=== PATIENT | male | born 1975 | race African-American/Black ===

== ENCOUNTER 2016-10-16 13:38 | Inpatient (IN) | payer BC ==
[2016-10-16 14:40] VITALS: BMI 21.3
--- NOTE | 2016-10-16 15:54 | HP ---
COWS - Scale Goose Flesh Skin: 3=Piloerection CIWA Score - CIWA Score Nausea/Vomitin-No Nausea/No Vomiting Muscle Tremors: 4-Moderate,w/Arms Extend Anxiety: 3 Agitation: 4-Moderately Restless Paroxysmal Sweats: 3 Orientation: 0-Oriented Tacttile Disturbances: 0-None Auditory Disturbances: 0-None Visual Disturbances: 0-None Headache: 0-None Present CIWA-Ar Total Score: 14 Admission ROS BHS - HPI Chief Complaint: I am here to detox. Allergies/Adverse Reactions: Allergies Allergy/AdvReac Type Severity Reaction Status Date / Time No Known Allergies Allergy Verified 10/16/16 15:31 History of Present Illness: pt is a 41yr old male with a history of alcohol and cocaine dependence seeking detox for treatment. Exam Limitations: No Limitations - Ebola screening Have you traveled outside of the country in the last 21 days: No Have you had contact with anyone from an Ebola affected area: No Have you been sick,other than usual withdrawal symptoms: No Do you have a fever: No - Review of Systems Constitutional: No Symptoms Reported EENT: reports: No Symptoms Reported Respiratory: reports: No Symptoms reported Cardiac: reports: Syncope GI: reports: No Symptoms Reported, Poor Fluid Intake : reports: No Symptoms Reported Musculoskeletal: reports: Back Pain Integumentary: reports: Flushing, Sweating Neuro: reports: Tingling, Tremors Endocrine: reports: Excessive Sweating, Flushing, Intolerance to Cold, Intolerance to Heat Hematology: reports: No Symptoms Reported Psychiatric: reports: Judgement Intact, Mood/Affect Appropiate, Orientated x3, Agitated, Anxious Other Systems: Reviewed and Negative Patient History - Patient Medical History Hx Anemia: No Hx Asthma: No Hx Chronic Obstructive Pulmonary Disease (COPD): No Hx Cancer: No Hx Cardiac Disorders: No Hx Congestive Heart Failure: No Hx Hypertension: No Hx Hypercholesterolemia: No Hx Pacemaker: No HX Cerebrovascular Accident: No Hx Seizures: No Hx Dementia: No Hx Diabetes: No Hx Gastrointestinal Disorders: No Hx Liver Disease: No Hx Genitourinary Disorders: No Hx Sexually Transmitted Disorders: No Hx Renal Disease (ESRD): No Hx Thyroid Disease: No Hx Human Immunodeficiency Virus (HIV): No (negative) Hx Hepatitis C: No (negative) Hx Depression: No Hx Suicide Attempt: No (denies) Hx Bipolar Disorder: No Hx Schizophrenia: No Other Medical History: panic attacks - Patient Surgical History Past Surgical History: No Hx Neurologic Surgery: No Hx Cataract Extraction: No Hx Cardiac Surgery: No Hx Lung Surgery: No Hx Breast Surgery: No Hx Breast Biopsy: No Hx Abdominal Surgery: No Hx Appendectomy: No Hx Cholecystectomy: No Hx Genitourinary Surgery: No Hx Section: No Hx Orthopedic Surgery: No Anesthesia Reaction: No - PPD History Previous Implant?: Yes Documented Results: Negative w/o proof Implanted On Prior [facility] Admission?: No PPD to be Administered?: Yes - Reproductive History Patient is a Female of Child Bearing Age (11 -55 yrs old): No - Smoking Cessation Smoking history: Current every day smoker Have you smoked in the past 12 months: Yes Aproximately how many cigarettes per day: 20 Hx Chewing Tobacco Use: No Initiated information on smoking cessation: Yes 'Breaking Loose' booklet given: 10/16/16 - Substance & Tx. History Hx Alcohol Use: Yes Hx Substance Use: Yes Substance Use Type: Alcohol, Cocaine Hx Substance Use Treatment: Yes (last detox [facility] 20yrs ago) - Substances Abused Crack Route: Smoking Frequency: Daily Amount used: $80 Age of first use: 17 Date of Last Use: 10/15/16 Alcohol-vodka/whisky/beer Route: Oral Frequency: Daily Amount used: 2 pts./2-6 pks. Age of first use: 12 Date of Last Use: 10/16/16 Family Disease History - Family Disease History Family Disease History: Diabetes: Father Admission Physical Exam BHS - Vital Signs Vital Signs: Vital Signs - 24 hr 10/16/16 14:39 Temperature 96.9 F L Pulse Rate 51 L Respiratory 20 Rate Blood Pressure 106/68 - Physical General Appearance: Yes: Appropriately Dressed, Moderate Distress, Thin, Irritable, Sweating, Anxious HEENTM: Yes: Hearing grossly Normal Respiratory: Yes: Lungs Clear, Normal Breath Sounds Neck: Yes: No masses,lesions,Nodules Breast: Yes: Within Normal Limits Cardiology: Yes: Regular Rhythm, Regular Rate, S1, S2 Abdominal: Yes: Normal Bowel Sounds, Non Tender, Soft Genitourinary: Yes: Within Normal Limits Back: Yes: Normal Inspection Musculoskeletal: Yes: full range of Motion, Back pain Extremities: Yes: Normal Capillary Refill, Normal Inspection, Tremors Neurological: Yes: Fully Oriented, Alert, Normal Response Integumentary: Yes: Normal Color, Diaphoresis Lymphatic: Yes: Within Normal Limits - Diagnostic (1) Alcohol dependence with uncomplicated withdrawal Current Visit: Yes Status: Chronic (2) Cocaine dependence, uncomplicated Current Visit: Yes Status: Chronic (3) Nicotine dependence Current Visit: Yes Status: Chronic Qualifiers: Nicotine product type: cigarettes (4) Panic attack Current Visit: Yes Status: Chronic Cleared for Admission [facility] - Detox or Rehab [facility] Level of Care: Medically Managed Detox Regimen/Protocol: Librium [facility] Breath Alcohol Content Breath Alcohol Content: 0 Urine Drug Screen - Results Drug Screen Negative: No Urine Drug Screen Results: MICHAEL-Cocaine
[2016-10-16] MEDS ORDERED: MAGNESIUM HYDROX 2400MG/30ML ORAL SUSPENSION 30 ML CUP PO PRN (15:56)
[2016-10-16] MEDS ORDERED: LOPERAMIDE HCL 2 MG CAPSULE PO PRN (15:56)
[2016-10-16] MEDS ORDERED: MAG HYDROX/AL HYDROX/SIMETH 30 ML UNIT-DOSE CUP PO PRN (15:56)
[2016-10-16] MEDS ORDERED: MAGNESIUM CITRATE 300 ML BOTTLE PO PRN (15:56)
[2016-10-16] MEDS ORDERED: chlordiazePOXIDE HCL 25 MG CAPSULE PO PRN (15:56)
[2016-10-16] MEDS ORDERED: hydrOXYzine PAMOATE 50 MG CAPSULE (FP) PO PRN (15:56)
[2016-10-16] MEDS ORDERED: P-EPHED 60MG/TRIPROLIDI 2.5MG TABLET PO PRN (15:56)
[2016-10-16] MEDS ORDERED: guaiFENesin/D-METHORPHAN HB 10 ML UNIT-DOSE CUPS PO PRN (15:56)
[2016-10-16] MEDS ORDERED: MENTHOL/PHENOL 1 EACH UD MM PRN (15:56)
[2016-10-16] MEDS ORDERED: chlordiazePOXIDE HCL 25 MG CAPSULE PO ONE (17:00)
[2016-10-16] MEDS: chlordiazePOXIDE HCL 25 MG CAPSULE PO SCH ×2 (17:59→22:42)
[2016-10-16] MEDS: NICOTINE POLACRILEX 4 MG GUM BUC PRN ×2 (18:05→22:43)
[2016-10-16 21:46] LABS: URINE APPEARANCE CLEAR; URINE BILIRUBIN NEGATIVE (NEGATIVE); URINE BLOOD NEGATIVE (NEGATIVE); URINE COLOR YELLOW; URINE GLUCOSE (UA) NEGATIVE (NEGATIVE); URINE KETONE NEGATIVE (NEGATIVE); URINE LEUK ESTERASE NEGATIVE (NEGATIVE); URINE NITRITE NEGATIVE (NEGATIVE); URINE PROTEIN NEGATIVE (NEGATIVE); URINE UROBILINOGEN NEGATIVE mg/dL (0.2-1.0)
[2016-10-16] MEDS: THIAMINE HCL 100 MG TABLET (FP) PO SCH (22:42)
[2016-10-16] MEDS: diphenhydrAMINE HCL 50 MG CAPSULE PO PRN (22:42)
[2016-10-17] MEDS: chlordiazePOXIDE HCL 25 MG CAPSULE PO SCH ×4 (05:56→22:55)
[2016-10-17] MEDS: NICOTINE POLACRILEX 4 MG GUM BUC PRN ×2 (05:58→10:42)
--- NOTE | 2016-10-17 08:46 | CONSULT ---
[facility] Psychiatric Consult - Data Date of interview: 10/17/16 Admission source: [facility] Identifying data: This is 41 years old male with no psychiatric hospitalization history iontoxicated with: Alcohol, Cocaine and Nicotine Substance Abuse History: - Smoking Cessation. Smoking history: Current every day smoker. Have you smoked in the past 12 months: Yes. Aproximately how many cigarettes per day: 20. Hx Chewing Tobacco Use: No. Initiated information on smoking cessation: Yes. 'Breaking Loose' booklet given: 10/16/16. - Substance & Tx. History. Hx Alcohol Use: Yes. Hx Substance Use: Yes. Substance Use Type : Alcohol, Cocaine. Hx Substance Use Treatment: Yes (last detox [facility] 20yrs ago). - Substances Abused. Crack. Route: Smoking. Frequency: Daily. Amount used: $80. Age of first use: 17. Date of Last Use: 10/15/16. * * Alcohol-vodka/whisky/beer. Route: Oral. Frequency: Daily. Amount used: 2 pts./2-6 pks. Age of first use: 12. Date of Last Use: 10/16/16 Medical History: Denies significant medical issues Psychiatric History: Denies Physical/Sexual Abuse/Trauma History: Denies Additional Comment: bservation. Detox Unit Carte Protocol Mental Status Exam - Mental Status Exam Alert and Oriented to: Person Cognitive Function: Fair Patient Appearance: Unkempt Mood: Sad Affect: Flat Patient Behavior: Sedated Speech Pattern: Delayed Voice Loudness: Mildly Soft/Quiet Thought Process: Goal Oriented Thought Disorder: Being Controlled Hallucinations: Denies Suicidal Ideation: Denies Homicidal Ideation: Denies Insight/Judgement: Fair Sleep: Difficulty falling asleep Appetite: Fair Muscle strength/Tone: Mild Hypotonicity Gait/Station: Shuffling Additional Comments: Observation. Detox Unit Care Protocol Psychiatric Findings - Problem List ([place] 1, 2,3) (1) Alcohol dependence with uncomplicated withdrawal Current Visit: Yes Status: Chronic (2) Cocaine dependence, uncomplicated Current Visit: Yes Status: Chronic (3) Nicotine dependence Current Visit: Yes Status: Chronic Qualifiers: Nicotine product type: cigarettes (4) Drug-induced mood disorder Current Visit: Yes Status: Suspected - Initial Treatment Plan Initial Treatment Plan: Observation. Detox Unit Care Protocol
[2016-10-17 09:53] LABS: MCHC 31.7 g/dl (32.0-35.9); MEAN CELL VOLUME 88.1 fl (80-96); MEAN PLT VOLUME 9.8 fl (7.5-11.1); PLATELET COUNT 171 K/MM3 (134-434); RDW 12.9 % (11.9-15.9); WHITE BLOOD COUNT 3.6 K/mm3 (4.0-10.0)
[2016-10-17 10:36] LABS: ALBUMIN 3.5 g/dl (3.4-5.0); ALK PHOS 53 U/L (45-117); ANION GAP 6 (8-16); BILIRUBIN,TOTAL 0.6 mg/dL (0.2-1.0); CALCIUM 8.9 mg/dL (8.5-10.1); CO2 32 mmol/L (21-32); GLUCOSE,RANDOM 79 mg/dL (74-106); SGOT/AST 15 U/L (15-37); SGPT/ALT 27 U/L (12-78); TOT PROT 6.7 g/dl (6.4-8.2)
[2016-10-17] MEDS: NICOTINE 21 MG/24 HOURS TOPICAL PATCH TD SCH (10:40)
[2016-10-17] MEDS: PRENATAL VITAMINS W/ FOLIC ACID TABLET (FP) PO SCH (10:40)
--- NOTE | 2016-10-17 12:28 | EKG ---
Test Reason : Blood Pressure : / mmHG Vent. Rate : 052 BPM Atrial Rate : 052 BPM P-R Int : 184 ms QRS Dur : 112 ms QT Int : 442 ms P-R-T Axes : 077 070 055 degrees QTc Int : 411 ms SINUS BRADYCARDIA MODERATE VOLTAGE CRITERIA FOR LVH, MAY BE NORMAL VARIANT BORDERLINE ECG NO PREVIOUS ECGS AVAILABLE Confirmed by LONNY LOVE MD ([id number]) on 10/17/2016 12:28:26 PM Referred By: Confirmed By:LONNY LOVE MD
--- NOTE | 2016-10-17 13:38 | PN ---
[facility] CIWA - CIWA Score Nausea/Vomitin-No Nausea/No Vomiting Muscle Tremors: 4-Moderate,w/Arms Extend Anxiety: 4-Mod. Anxious/Guarded Agitation: 2 Paroxysmal Sweats: 3 Orientation: 0-Oriented Tacttile Disturbances: 0-None Auditory Disturbances: 1-Very Mild Visual Disturbances: 3-Moderate Sensitivity Headache: 0-None Present CIWA-Ar Total Score: 17 BHS Progress Note (SOAP) Subjective: Tremors, Fatigue, Sweating. Objective: PT. A & O X 3, OBSERVED AMBULATING ON UNIT. NO ACUTE DISTRESS. 10/17/16 13:37 Vital Signs Temperature 99.7 F H 10/17/16 13:35 Pulse Rate 60 10/17/16 13:35 Respiratory Rate 18 10/17/16 13:35 Blood Pressure 121/67 10/17/16 13:35 O2 Sat by Pulse Oximetry (%) Laboratory Tests 10/16/16 10/17/16 10/17/16 20:30 07:00 07:00 WBC 3.6 L RBC 4.49 Hgb 12.5 Hct 39.5 MCV 88.1 MCH 28.0 MCHC 31.7 L RDW 12.9 Plt Count 171 MPV 9.8 Sodium 143 Potassium 4.0 Chloride 105 Carbon Dioxide 32 Anion Gap 6 L BUN 13 Creatinine 1.0 Creat Clearance w eGFR > 60 Random Glucose 79 Calcium 8.9 Total Bilirubin 0.6 AST 15 ALT 27 Alkaline Phosphatase 53 Total Protein 6.7 Albumin 3.5 Urine Color Yellow Urine Appearance Clear Urine pH 5.0 Ur Specific [place] 1.025 Urine Protein Negative Urine Glucose (UA) Negative Urine Ketones Negative Urine Blood Negative Urine Nitrite Negative Urine Bilirubin Negative Urine Urobilinogen Negative Ur Leukocyte Esterase Negative RPR Titer 10/17/16 07:00 WBC RBC Hgb Hct MCV MCH MCHC RDW Plt Count MPV Sodium Potassium Chloride Carbon Dioxide Anion Gap BUN Creatinine Creat Clearance w eGFR Random Glucose Calcium Total Bilirubin AST ALT Alkaline Phosphatase Total Protein Albumin Urine Color Urine Appearance Urine pH Ur Specific [place] Urine Protein Urine Glucose (UA) Urine Ketones Urine Blood Urine Nitrite Urine Bilirubin Urine Urobilinogen Ur Leukocyte Esterase RPR Titer Nonreactive LABS NOTED. Assessment: 10/17/16 13:37 WITHDRAWAL SYMPTOMS. Plan: CONTINUE DETOX.
[2016-10-17] MEDS: IBUPROFEN 400 MG TABLET (FP) PO PRN ×2 (17:53→22:58)
[2016-10-17] MEDS: THIAMINE HCL 100 MG TABLET (FP) PO SCH (22:56)
[2016-10-17] MEDS: diphenhydrAMINE HCL 50 MG CAPSULE PO PRN (22:56)
[2016-10-18] MEDS: chlordiazePOXIDE HCL 25 MG CAPSULE PO SCH ×2 (05:27→10:50)
[2016-10-18] MEDS: NICOTINE 21 MG/24 HOURS TOPICAL PATCH TD SCH (10:49)
[2016-10-18] MEDS: PRENATAL VITAMINS W/ FOLIC ACID TABLET (FP) PO SCH (10:50)
[2016-10-18] MEDS: IBUPROFEN 400 MG TABLET (FP) PO PRN ×3 (10:53→22:51)
[2016-10-18] MEDS: NICOTINE POLACRILEX 4 MG GUM BUC PRN (10:54)
--- NOTE | 2016-10-18 13:03 | PN ---
[facility] CIWA - CIWA Score Nausea/Vomitin-No Nausea/No Vomiting Muscle Tremors: 3 Anxiety: 3 Agitation: 3 Paroxysmal Sweats: 3 Orientation: 0-Oriented Tacttile Disturbances: 3-Moderate Itch/Numb/Burn Auditory Disturbances: 2-Mild Harshness/Frighten Visual Disturbances: 0-None Headache: 0-None Present CIWA-Ar Total Score: 17 BHS Progress Note (SOAP) Subjective: Interrupted sleep, Body Aches, Sweating. Objective: PT. A & O X 3, OBSERVED AMBULATING ON UNIT. NO ACUTE DISTRESS. 10/18/16 13:02 Vital Signs Temperature 97.7 F 10/18/16 11:15 Pulse Rate 49 L 10/18/16 11:15 Respiratory Rate 20 10/18/16 11:15 Blood Pressure 105/69 10/18/16 11:15 O2 Sat by Pulse Oximetry (%) Laboratory Tests 10/16/16 10/17/16 10/17/16 20:30 07:00 07:00 WBC 3.6 L RBC 4.49 Hgb 12.5 Hct 39.5 MCV 88.1 MCH 28.0 MCHC 31.7 L RDW 12.9 Plt Count 171 MPV 9.8 Sodium 143 Potassium 4.0 Chloride 105 Carbon Dioxide 32 Anion Gap 6 L BUN 13 Creatinine 1.0 Creat Clearance w eGFR > 60 Random Glucose 79 Calcium 8.9 Total Bilirubin 0.6 AST 15 ALT 27 Alkaline Phosphatase 53 Total Protein 6.7 Albumin 3.5 Urine Color Yellow Urine Appearance Clear Urine pH 5.0 Ur Specific [place] 1.025 Urine Protein Negative Urine Glucose (UA) Negative Urine Ketones Negative Urine Blood Negative Urine Nitrite Negative Urine Bilirubin Negative Urine Urobilinogen Negative Ur Leukocyte Esterase Negative RPR Titer 10/17/16 07:00 WBC RBC Hgb Hct MCV MCH MCHC RDW Plt Count MPV Sodium Potassium Chloride Carbon Dioxide Anion Gap BUN Creatinine Creat Clearance w eGFR Random Glucose Calcium Total Bilirubin AST ALT Alkaline Phosphatase Total Protein Albumin Urine Color Urine Appearance Urine pH Ur Specific [place] Urine Protein Urine Glucose (UA) Urine Ketones Urine Blood Urine Nitrite Urine Bilirubin Urine Urobilinogen Ur Leukocyte Esterase RPR Titer Nonreactive LABS NOTED. Assessment: 10/18/16 13:02 WITHDRAWAL SYMPTOMS. Plan: CONTINUE DETOX. INCREASE DAILY PO FLUID INTAKE.
[2016-10-18] MEDS: chlordiazePOXIDE 5 MG CAPSULE PO SCH ×2 (17:41→22:47)
[2016-10-18] MEDS: HYDROCORTISONE 1% TOPICAL OINT 30 GM TUBE TP SCH (18:30)
[2016-10-18] MEDS: THIAMINE HCL 100 MG TABLET (FP) PO SCH (22:47)
[2016-10-18] MEDS: diphenhydrAMINE HCL 50 MG CAPSULE PO PRN (22:49)
[2016-10-19] MEDS: chlordiazePOXIDE 5 MG CAPSULE PO SCH ×2 (06:01→10:51)
[2016-10-19] MEDS: IBUPROFEN 400 MG TABLET (FP) PO PRN (06:04)
[2016-10-19] MEDS: NICOTINE POLACRILEX 4 MG GUM BUC PRN (06:12)
[2016-10-19] MEDS: ACETAMINOPHEN 325 MG TABLET (FP) PO PRN (10:49)
[2016-10-19] MEDS: PRENATAL VITAMINS W/ FOLIC ACID TABLET (FP) PO SCH (10:50)
[2016-10-19] MEDS: HYDROCORTISONE 1% TOPICAL OINT 30 GM TUBE TP SCH (10:50)
[2016-10-19] MEDS: NICOTINE 21 MG/24 HOURS TOPICAL PATCH TD SCH (10:51)
[2016-10-19] MEDS: chlordiazePOXIDE HCL 10 MG CAPSULE PO SCH ×2 (17:36→22:40)
--- NOTE | 2016-10-19 20:47 | PN ---
BHS Progress Note (SOAP) Subjective: Body Aches. Objective: PT. A & O X 3, OBSERVED AMBULATING ON UNIT. NO ACUTE DISTRESS. 10/19/16 20:45 Vital Signs Temperature 97.9 F 10/19/16 19:13 Pulse Rate 50 L 10/19/16 19:13 Respiratory Rate 18 10/19/16 19:13 Blood Pressure 95/58 10/19/16 19:13 O2 Sat by Pulse Oximetry (%) Laboratory Tests 10/16/16 10/17/16 10/17/16 20:30 07:00 07:00 WBC 3.6 L RBC 4.49 Hgb 12.5 Hct 39.5 MCV 88.1 MCH 28.0 MCHC 31.7 L RDW 12.9 Plt Count 171 MPV 9.8 Sodium 143 Potassium 4.0 Chloride 105 Carbon Dioxide 32 Anion Gap 6 L BUN 13 Creatinine 1.0 Creat Clearance w eGFR > 60 Random Glucose 79 Calcium 8.9 Total Bilirubin 0.6 AST 15 ALT 27 Alkaline Phosphatase 53 Total Protein 6.7 Albumin 3.5 Urine Color Yellow Urine Appearance Clear Urine pH 5.0 Ur Specific [place] 1.025 Urine Protein Negative Urine Glucose (UA) Negative Urine Ketones Negative Urine Blood Negative Urine Nitrite Negative Urine Bilirubin Negative Urine Urobilinogen Negative Ur Leukocyte Esterase Negative RPR Titer 10/17/16 07:00 WBC RBC Hgb Hct MCV MCH MCHC RDW Plt Count MPV Sodium Potassium Chloride Carbon Dioxide Anion Gap BUN Creatinine Creat Clearance w eGFR Random Glucose Calcium Total Bilirubin AST ALT Alkaline Phosphatase Total Protein Albumin Urine Color Urine Appearance Urine pH Ur Specific [place] Urine Protein Urine Glucose (UA) Urine Ketones Urine Blood Urine Nitrite Urine Bilirubin Urine Urobilinogen Ur Leukocyte Esterase RPR Titer Nonreactive LABS NOTED. Assessment: 10/19/16 20:46 WITHDRAWAL SYMPTOMS. Plan: CONTINUE DETOX. INCREASE PO FLUID INTAKE.
[2016-10-19] MEDS: diphenhydrAMINE HCL 50 MG CAPSULE PO PRN (22:40)
[2016-10-19] MEDS: THIAMINE HCL 100 MG TABLET (FP) PO SCH (22:40)
[2016-10-20] MEDS: chlordiazePOXIDE HCL 10 MG CAPSULE PO SCH (05:24)
[2016-10-20] MEDS: PRENATAL VITAMINS W/ FOLIC ACID TABLET (FP) PO SCH (09:04)
[2016-10-20] MEDS: NICOTINE 21 MG/24 HOURS TOPICAL PATCH TD SCH (09:04)
[2016-10-20] MEDS: HYDROCORTISONE 1% TOPICAL OINT 30 GM TUBE TP SCH (09:05)
[2016-10-20] MEDS: NICOTINE POLACRILEX 4 MG GUM BUC PRN (09:05)
[2016-10-20 09:22] VITALS: BP 114/72; PULSE 57; TEMP 96.7
[2016-10-20] MEDS: ACETAMINOPHEN 325 MG TABLET (FP) PO PRN (09:59)
--- NOTE | 2016-10-20 13:32 | DS ---
[facility] Detox Discharge Summary Admission Date: 10/16/16 Discharge Date: 10/20/16 - History Present History: Alcohol Dependence, Cocaine Dependence - Physical Exam Results Vital Signs: Vital Signs Temperature 96.7 F L 10/20/16 09:21 Pulse Rate 57 L 10/20/16 09:21 Respiratory Rate 18 10/20/16 09:21 Blood Pressure 114/72 10/20/16 09:21 O2 Sat by Pulse Oximetry (%) Pertinent Admission Physical Exam Findings: Withdrawal symptoms Laboratory Tests 10/16/16 10/17/16 10/17/16 20:30 07:00 07:00 WBC 3.6 L RBC 4.49 Hgb 12.5 Hct 39.5 MCV 88.1 MCH 28.0 MCHC 31.7 L RDW 12.9 Plt Count 171 MPV 9.8 Sodium 143 Potassium 4.0 Chloride 105 Carbon Dioxide 32 Anion Gap 6 L BUN 13 Creatinine 1.0 Creat Clearance w eGFR > 60 Random Glucose 79 Calcium 8.9 Total Bilirubin 0.6 AST 15 ALT 27 Alkaline Phosphatase 53 Total Protein 6.7 Albumin 3.5 Urine Color Yellow Urine Appearance Clear Urine pH 5.0 Ur Specific [place] 1.025 Urine Protein Negative Urine Glucose (UA) Negative Urine Ketones Negative Urine Blood Negative Urine Nitrite Negative Urine Bilirubin Negative Urine Urobilinogen Negative Ur Leukocyte Esterase Negative RPR Titer 10/17/16 07:00 WBC RBC Hgb Hct MCV MCH MCHC RDW Plt Count MPV Sodium Potassium Chloride Carbon Dioxide Anion Gap BUN Creatinine Creat Clearance w eGFR Random Glucose Calcium Total Bilirubin AST ALT Alkaline Phosphatase Total Protein Albumin Urine Color Urine Appearance Urine pH Ur Specific [place] Urine Protein Urine Glucose (UA) Urine Ketones Urine Blood Urine Nitrite Urine Bilirubin Urine Urobilinogen Ur Leukocyte Esterase RPR Titer Nonreactive Labs noted - Treatment Hospital Course: Detox Protocol Followed, Detoxed Safely, Responded well, Discharged Condition Good - Medication Discharge Medications: Ambulatory Orders NK [No Known Home Medication] 10/16/16 - Diagnosis (1) Alcohol dependence with uncomplicated withdrawal Status: Acute (2) Cocaine dependence, uncomplicated Status: Chronic (3) Nicotine dependence Status: Chronic Qualifiers: Nicotine product type: cigarettes (4) Panic attack Status: Chronic - AMA Did Patient Leave Against Medical Advice: No
== END 2016-10-20 10:01 | disposition home or self-care (01) | DRG 774 ==
LOC: YASAS 13:38 → Y3N 16:47
PROVIDERS: ADMIT Internal Medicine Addiction Medicine; ATTEND Internal Medicine Addiction Medicine
PROC: HZ2ZZZZ Detoxification Services for Substance Abuse Treatment (ICD-10-PCS; principal; 2016-10-16)
DX: F10.230 Alcohol dependence with withdrawal, uncomplicated (principal); F14.20 Cocaine dependence, uncomplicated; F17.210 Nicotine dependence, cigarettes, uncomplicated; F41.0 Panic disorder [episodic paroxysmal anxiety]; F19.24 Other psychoactive substance dependence with psychoactive substance-induced mood disorder; Z59.0 Homelessness
CPT/HCPCS: 36415; 80053; 81003; 85027; 86593; 93005; 93010

== ENCOUNTER 2017-07-30 18:34 | Inpatient (IN) | payer BC ==
[2017-07-30 19:52] VITALS: BMI 23.3
[2017-07-30] MEDS ORDERED: MELATONIN 5 MG TABLETS PO PRN (22:00)
--- NOTE | 2017-07-30 23:28 | HP ---
CIWA Score - CIWA Score Nausea/Vomitin Muscle Tremors: 3 Anxiety: 3 Agitation: 4-Moderately Restless Paroxysmal Sweats: No Perspiration Orientation: 1-Uncertain about Date Tacttile Disturbances: 0-None Auditory Disturbances: 0-None Visual Disturbances: 0-None Headache: 2-Mild CIWA-Ar Total Score: 16 Admission ROS S - HPI Chief Complaint: Alcohol withdrawal symptoms Allergies/Adverse Reactions: Allergies Allergy/AdvReac Type Severity Reaction Status Date / Time No Known Allergies Allergy Verified 07/30/17 22:45 History of Present Illness: 42 years old male with a long history of alcohol dependence is seeking admission to detox. Patient has been to previous detox and reports in significant period of sobriety. He reports suicide attempt in 2017 and denies suicidal ideation at this time. Exam Limitations: No Limitations - Ebola screening Have you traveled outside of the country in the last 21 days: No Have you had contact with anyone from an Ebola affected area: No Have you been sick,other than usual withdrawal symptoms: No Do you have a fever: No - Review of Systems Constitutional: Chills, Loss of Appetite, Malaise, Changes in sleep EENT: reports: No Symptoms Reported Respiratory: reports: No Symptoms reported Cardiac: reports: No Symptoms Reported GI: reports: Poor Appetite, Poor Fluid Intake : reports: No Symptoms Reported Musculoskeletal: reports: Back Pain, Muscle Pain, Neck Pain Integumentary: reports: Dryness Neuro: reports: Headache, Tremors Endocrine: reports: No Symptoms Reported Hematology: reports: No Symptoms Reported Psychiatric: reports: Orientated x3, Anxious, Depressed Other Systems: Reviewed and Negative Patient History - Patient Medical History Hx Anemia: No Hx Asthma: No Hx Chronic Obstructive Pulmonary Disease (COPD): No Hx Cancer: No Hx Cardiac Disorders: No Hx Congestive Heart Failure: No Hx Hypertension: No Hx Hypercholesterolemia: No Hx Pacemaker: No HX Cerebrovascular Accident: No Hx Seizures: No Hx Dementia: No Hx Diabetes: No Hx Gastrointestinal Disorders: No Hx Liver Disease: No Hx Genitourinary Disorders: No Hx Sexually Transmitted Disorders: No Hx Renal Disease (ESRD): No Hx Thyroid Disease: No Hx Human Immunodeficiency Virus (HIV): No (N egative) Hx Hepatitis C: No (Negative) Hx Depression: Yes (Risperdal and depakote) Hx Suicide Attempt: No (Denies suicidal ideation at this time) Hx Bipolar Disorder: No Hx Schizophrenia: No - Patient Surgical History Past Surgical History: No Hx Neurologic Surgery: No Hx Cataract Extraction: No Hx Cardiac Surgery: No Hx Lung Surgery: No Hx Breast Surgery: No Hx Breast Biopsy: No Hx Abdominal Surgery: No Hx Appendectomy: No Hx Cholecystectomy: No Hx Genitourinary Surgery: No Hx Section: No Hx Orthopedic Surgery: No Other Surgical History: Anxiety - Depakote and Risperdal Anesthesia Reaction: No - PPD History Previous Implant?: Yes Documented Results: Negative w/proof Date: 10/18/16 PPD to be Administered?: Yes - Reproductive History Patient is a Female of Child Bearing Age (11 -55 yrs old): No (Male) - Smoking Cessation Smoking history: Current every day smoker Have you smoked in the past 12 months: Yes Aproximately how many cigarettes per day: 20 Hx Chewing Tobacco Use: No Initiated information on smoking cessation: Yes 'Breaking Loose' booklet given: 07/30/17 - Substance & Tx. History Hx Alcohol Use: Yes Hx Substance Use: Yes Substance Use Type: Cocaine, Heroin - Substances Abused Alcohol Route: Oral Frequency: Daily Amount used: LIQUOR- 3 PINTS, BEER- 1 SIX PACK Age of first use: 14 Date of Last Use: 07/29/17 Cocaine Route: Smoking Frequency: Daily Amount used: $100 WORTH Age of first use: 16 Date of Last Use: 07/29/17 Family Disease History - Family Disease History Family Disease History: Diabetes: Father Admission Physical Exam BHS - Vital Signs Vital Signs: Vital Signs - 24 hr 07/30/17 19:51 Temperature 97.7 F Pulse Rate 51 L Respiratory 16 Rate Blood Pressure 137/80 - Physical General Appearance: Yes: Moderate Distress, Tremorous, Irritable, Sweating, Anxious HEENTM: Yes: EOMI, Normal ENT Inspection, Normocephalic, Normal Voice, LETICIA Respiratory: Yes: Lungs Clear, Normal Breath Sounds, No Respiratory Distress Neck: Yes: Supple Breast: Yes: Breast Exam Deferred Cardiology: Yes: Within Normal Limits, Regular Rhythm, Regular Rate, S1, S2 Abdominal: Yes: Normal Bowel Sounds, Soft Genitourinary: Yes: Within Normal Limits Back: Yes: Normal Inspection Musculoskeletal: Yes: Back pain, Muscle Pain Extremities: Yes: Tremors Neurological: Yes: Alert, Normal Mood/Affect Integumentary: Yes: Normal Color, Warm Lymphatic: Yes: Within Normal Limits - Diagnostic (1) Anxiety Current Visit: Yes Status: Chronic (2) Depression Current Visit: Yes Status: Chronic (3) Nicotine dependence Current Visit: Yes Status: Chronic (4) Alcohol dependence with uncomplicated withdrawal Current Visit: Yes Status: Chronic (5) Cocaine dependence, uncomplicated Current Visit: Yes Status: Chronic (6) Sedative, hypnotic or anxiolytic abuse with sedative, hypnotic or anxiolytic -induced mood disorder Current Visit: Yes Status: Acute Cleared for Admission [facility] - Detox or Rehab [facility] Level of Care: Medically Managed Detox Regimen/Protocol: Librium [facility] Breath Alcohol Content Breath Alcohol Content: 0 Urine Drug Screen - Results Drug Screen Negative: No Urine Drug Screen Results: MICHAEL-Cocaine, BZO-Benzodiazepines
[2017-07-30] MEDS ORDERED: MAG HYDROX/AL HYDROX/SIMETH 30 ML UNIT-DOSE CUP PO PRN (23:33)
[2017-07-30] MEDS ORDERED: MAGNESIUM CITRATE 300 ML BOTTLE PO PRN (23:33)
[2017-07-30] MEDS ORDERED: chlordiazePOXIDE HCL 25 MG CAPSULE PO ONE (23:33)
[2017-07-30] MEDS ORDERED: MAGNESIUM HYDROX 2400MG/30ML ORAL SUSPENSION 30 ML CUP PO PRN (23:33)
[2017-07-30] MEDS ORDERED: guaiFENesin/D-METHORPHAN HB 10 ML UNIT-DOSE CUPS PO PRN (23:33)
[2017-07-30] MEDS ORDERED: MENTHOL/PHENOL 1 EACH UD MM PRN (23:33)
[2017-07-30] MEDS ORDERED: P-EPHED 60MG/TRIPROLIDI 2.5MG TABLET PO PRN (23:33)
[2017-07-30] MEDS ORDERED: LOPERAMIDE HCL 2 MG CAPSULE PO PRN (23:33)
[2017-07-30] MEDS ORDERED: NICOTINE POLACRILEX 2 MG GUM BC PRN (23:33)
[2017-07-30] MEDS ORDERED: ACETAMINOPHEN 325 MG TABLET (FP) PO PRN (23:33)
[2017-07-30] MEDS ORDERED: chlordiazePOXIDE HCL 25 MG CAPSULE PO PRN (23:33)
[2017-07-31] MEDS: chlordiazePOXIDE HCL 25 MG CAPSULE PO SCH ×8 (04:15→22:22)
[2017-07-31] MEDS ORDERED: chlordiazePOXIDE HCL 25 MG CAPSULE PO SCH (05:00)
[2017-07-31 07:48] LABS: URINE APPEARANCE TURBID; URINE BILIRUBIN NEGATIVE (<2.0 mg/dL); URINE COLOR YELLOW; URINE GLUCOSE (UA) NEGATIVE (NEGATIVE); URINE KETONE NEGATIVE (NEGATIVE); URINE LEUK ESTERASE NEGATIVE (NEGATIVE); URINE NITRITE NEGATIVE (NEGATIVE)
[2017-07-31 08:00] LABS: URINE PROTEIN 1+ (NEGATIVE)
[2017-07-31 08:25] LABS: URINE BACTERIA MANY /hpf (NONE SEEN)
--- NOTE | 2017-07-31 09:12 | CONSULT ---
[facility] Psychiatric Consult - Data Date of interview: 07/31/17 Admission source: [facility] Identifying data: This is 42 years old male, single, father tiara, homeless, on PA, with psychiatric hospitalization histry, history of Bipolar Disorder with a long history of alcohol dependence is seeking admission to detox. Patient has been to previous detox and reports in significant period of sobriety. He reports suicide attempt history in 2017 and denies suicidal ideation at this time. Substance Abuse History: Smoking history: Current every day smoker. Have you smoked in the past 12 months: Yes. Aproximately how many cigarettes per day: 20. Hx Chewing Tobacco Use: No. Initiated information on smoking cessation: Yes. 'Breaking Loose' booklet given: 07/30/17. - Substance & Tx. History. Hx Alcohol Use: Yes. Hx Substance Use: Yes. Substance Use Type: Cocaine, Heroin. - Substances Abused. Alcohol. Route: Oral. Frequency: Daily. Amount used: LIQUOR- 3 PINTS, BEER- 1 SIX PACK. Age of first use: 14. Date of Last Use: 07/29/17. Cocaine. Route: Smoking. Frequency: Daily. Amount used: $ 100 WORTH. Age of first use: 16. Date of Last Use: 07/29/17 Medical History: Denies significant medical issues Psychiatric History: Patient reports history of Bipolar disorder, with most rcent psychiatric admission on [address] [facility] [place] for safety, reports unclear history of suicidal ideqations, denies suicidal, homiCidal ideations at this time. Patient reports taking prior to admission: Risperdal 2mf poqd. Depakote 1500mg po qhs Physical/Sexual Abuse/Trauma History: Denies Additional Comment: Risperdal 2mf poqd. Depakote 1500mg po qhs Mental Status Exam - Mental Status Exam Alert and Oriented to: Person Cognitive Function: Fair Patient Appearance: Unkempt Mood: Sad Affect: Mood Congruent Patient Behavior: Guarded, Cooperative Speech Pattern: Appropriate Voice Loudness: Normal Thought Process: Goal Oriented Thought Disorder: Being Controlled Hallucinations: Denies Suicidal Ideation: Denies Homicidal Ideation: Denies Insight/Judgement: Fair Sleep: Difficulty falling asleep Appetite: Weight loss Muscle strength/Tone: Normal Gait/Station: Normal Additional Comments: Risperdal 2mf poqd. Depakote 1500mg po qhs Psychiatric Findings - Problem List ([place] 1, 2,3) (1) Sedative, hypnotic or anxiolytic abuse with sedative, hypnotic or anxiolytic -induced mood disorder Current Visit: Yes Status: Acute (2) Alcohol dependence with uncomplicated withdrawal Current Visit: Yes Status: Chronic (3) Anxiety Current Visit: Yes Status: Chronic (4) Cocaine dependence, uncomplicated Current Visit: Yes Status: Chronic (5) Depression Current Visit: Yes Status: Chronic (6) Nicotine dependence Current Visit: Yes Status: Chronic (7) Panic attack Current Visit: No Status: Chronic (8) Drug-induced mood disorder Current Visit: No Status: Suspected - Initial Treatment Plan Initial Treatment Plan: Risperdal 2mf poqd. Depakote 1500mg po qhs. Blood Depakote level
[2017-07-31 10:08] LABS: RDW 13.6 % (11.9-15.9); WHITE BLOOD COUNT 3.9 K/mm3 (4.0-10.0)
[2017-07-31 10:11] LABS: HEMATOCRIT 36.8 % (35.4-49); MCHC 32.5 g/dl (32.0-35.9); MEAN CELL VOLUME 86.3 fl (80-96); MEAN PLT VOLUME 9.9 fl (7.5-11.1); PLATELET COUNT 157 K/MM3 (134-434); RBC 4.26 M/mm3 (4.00-5.60)
[2017-07-31] MEDS: PRENATAL VITAMINS W/ FOLIC ACID TABLET (FP) PO SCH (10:37)
[2017-07-31] MEDS: risperiDONE 2 MG TABLET PO SCH (10:38)
[2017-07-31] MEDS: DIVALPROEX SODIUM 500 MG TABLET E.C. PO SCH (10:38)
[2017-07-31] MEDS: NICOTINE 14 MG/24 HOURS TOPICAL PATCH TD SCH (10:39)
[2017-07-31 10:46] LABS: CHLORIDE 104 mmol/L (98-107); POTASSIUM 3.8 mmol/L (3.5-5.1); SODIUM 142 mmol/L (136-145)
--- NOTE | 2017-07-31 10:56 | PN ---
S CIWA - CIWA Score Nausea/Vomitin-Mild Nausea/No Vomiting Muscle Tremors: 1-None Visible, but [place] Anxiety: 1-Mildly Anxious Agitation: 0-Normal Activity Paroxysmal Sweats: 1-Minimal Palms Moist Orientation: 0-Oriented Tacttile Disturbances: 0-None Auditory Disturbances: 0-None Visual Disturbances: 0-None Headache: 1-Very Mild CIWA-Ar Total Score: 5 B[facility] Progress Note (SOAP) Subjective: Patient admitted for ETOH withdrawal symptoms on 07/2017. Patient states " I am hanging in there. I feel OK." Denies CP, SOB and Dizziness. Mild indigestion and nausea reported. + anxiety. Objective: 07/31/17 10:54 Obj: General: alert and oriented x 3. In NAD. Mildy anxious. Skin: warm and moist. Car: S1S2 Resp: CTA BL Assessment: 07/31/17 10:55 ETOH withdrawal sydrome Plan: Continue detox Patient medically stable continue oral fluids and monitor clinically
[2017-07-31 11:17] LABS: ALBUMIN 3.8 g/dl (3.4-5.0); ALK PHOS 54 U/L (45-117); ANION GAP 10 (8-16); BILIRUBIN,TOTAL 0.5 mg/dL (0.2-1.0); BLOOD UREA NITROGEN 15 mg/dL (7-18); CALCIUM 8.5 mg/dL (8.5-10.1); CO2 28 mmol/L (21-32); CREATININE 1.2 mg/dL (0.7-1.3); GLUCOSE,RANDOM 84 mg/dL (74-106); SGOT/AST 17 U/L (15-37); SGPT/ALT 23 U/L (12-78); TOT PROT 7.2 g/dl (6.4-8.2)
--- NOTE | 2017-07-31 11:58 | EKG ---
Test Reason : Blood Pressure : / mmHG Vent. Rate : 071 BPM Atrial Rate : 071 BPM P-R Int : 200 ms QRS Dur : 098 ms QT Int : 372 ms P-R-T Axes : 073 066 052 degrees QTc Int : 404 ms NORMAL SINUS RHYTHM NONSPECIFIC ST ABNORMALITY ABNORMAL ECG WHEN COMPARED WITH ECG OF 31-JUL-2017 00:43, VENT. RATE HAS INCREASED BY 26 BPM Confirmed by IVAN GUADALUPE, LONNY ([id number]) on 07/31/2017 11:58:26 AM Referred By: Confirmed By:LONNY LOVE MD
--- NOTE | 2017-07-31 11:59 | EKG ---
Test Reason : Blood Pressure : / mmHG Vent. Rate : 045 BPM Atrial Rate : 045 BPM P-R Int : 210 ms QRS Dur : 116 ms QT Int : 476 ms P-R-T Axes : 076 063 047 degrees QTc Int : 411 ms SINUS BRADYCARDIA WITH 1ST DEGREE A-V BLOCK ST ELEVATION, CONSIDER EARLY REPOLARIZATION BORDERLINE ECG WHEN COMPARED WITH ECG OF 16-OCT-2016 17:51, NO SIGNIFICANT CHANGE WAS FOUND Confirmed by IVAN GUADALUPE, LONNY (2013) on 07/31/2017 11:58:58 AM Referred By: Confirmed By:LONNY LOVE MD
[2017-07-31] MEDS: AMOXICILLIN 500 MG CAPSULE (FP) PO SCH ×2 (14:23→22:22)
--- NOTE | 2017-07-31 14:36 | PN ---
S Progress Note Note: NOTIFIED BY RN PATIENT C/O SORE THROAT AND UNABLE TO FULLY OPEN MOUTH. CEPASTAT INEFFECTIVE. TEMPERATURE 100.6. WILL ORDER THROAT C/S AND AMOXICILLIN 500MG TID X 7 DAYS. CONTINUE TO MONITOR CLINICALLY.
[2017-07-31] MEDS: IBUPROFEN 400 MG TABLET (FP) PO PRN (17:15)
[2017-07-31] MEDS: THIAMINE HCL 100 MG TABLET (FP) PO SCH (22:22)
[2017-08-01] MEDS ORDERED: chlordiazePOXIDE 5 MG CAPSULE PO SCH (05:00)
[2017-08-01] MEDS: AMOXICILLIN 500 MG CAPSULE (FP) PO SCH ×3 (05:46→22:45)
[2017-08-01] MEDS: chlordiazePOXIDE HCL 25 MG CAPSULE PO SCH ×4 (05:46→22:45)
[2017-08-01] MEDS: risperiDONE 2 MG TABLET PO SCH (10:21)
[2017-08-01] MEDS: PRENATAL VITAMINS W/ FOLIC ACID TABLET (FP) PO SCH (10:21)
[2017-08-01] MEDS: NICOTINE 14 MG/24 HOURS TOPICAL PATCH TD SCH (10:21)
[2017-08-01] MEDS: DIVALPROEX SODIUM 500 MG TABLET E.C. PO SCH (10:21)
--- NOTE | 2017-08-01 11:05 | PN ---
[facility] CIWA - CIWA Score Muscle Tremors: None Anxiety: 0-No Anxiety, at Ease Agitation: 0-Normal Activity Paroxysmal Sweats: No Perspiration Orientation: 0-Oriented Tacttile Disturbances: 0-None Auditory Disturbances: 0-None
--- NOTE | 2017-08-01 11:12 | PN ---
[facility] Progress Note (SOAP) Subjective: 42 years old male with a long history of alcohol dependence is here for detox Today pt states he feels tired and depressed, Says librium is working well for him Objective: 08/01/17 11:07 Vital Signs - 24 hr 07/31/17 07/31/17 07/31/17 13:08 18:04 22:39 Temperature 100.6 F H 101.8 F H 97.5 F L Pulse Rate 70 86 68 Respiratory 18 18 19 Rate Blood Pressure 123/67 114/63 101/64 08/01/17 08/01/17 08/01/17 00:30 03:30 06:00 Temperature 97.3 F L Pulse Rate 56 L Respiratory 18 18 18 Rate Blood Pressure 106/63 08/01/17 10:00 Temperature 98.0 F Pulse Rate 74 Respiratory 18 Rate Blood Pressure 106/68 07/31/17 07:00 07/31/17 07:00 CBCD WBC 3.9 K/mm3 (4.0-10.0) L 07/31/17 07:00 RBC 4.26 M/mm3 (4.00-5.60) 07/31/17 07:00 Hgb 12.0 GM/dL (11.7-16.9) 07/31/17 07:00 Hct 36.8 % (35.4-49) 07/31/17 07:00 MCV 86.3 fl (80-96) 07/31/17 07:00 MCHC 32.5 g/dl (32.0-35.9) 07/31/17 07:00 RDW 13.6 % (11.9-15.9) 07/31/17 07:00 Plt Count 157 K/MM3 (134-434) 07/31/17 07:00 MPV 9.9 fl (7.5-11.1) 07/31/17 07:00 CMP Sodium 142 mmol/L (136-145) 07/31/17 07:00 Potassium 3.8 mmol/L (3.5-5.1) 07/31/17 07:00 Chloride 104 mmol/L (98-107) 07/31/17 07:00 Carbon Dioxide 28 mmol/L (21-32) 07/31/17 07:00 Anion Gap 10 (8-16) 07/31/17 07:00 BUN 15 mg/dL (7-18) 07/31/17 07:00 Creatinine 1.2 mg/dL (0.7-1.3) 07/31/17 07:00 Creat Clearance w eGFR > 60 (>60) 07/31/17 07:00 Random Glucose 84 mg/dL (74-106) 07/31/17 07:00 Calcium 8.5 mg/dL (8.5-10.1) 07/31/17 07:00 Total Bilirubin 0.5 mg/dL (0.2-1.0) 07/31/17 07:00 AST 17 U/L (15-37) 07/31/17 07:00 ALT 23 U/L (12-78) 07/31/17 07:00 Alkaline Phosphatase 54 U/L (45-117) 07/31/17 07:00 Total Protein 7.2 g/dl (6.4-8.2) 07/31/17 07:00 Albumin 3.8 g/dl (3.4-5.0) 07/31/17 07:00 Pt had fevers of about 100 yesterday- today afebrile pt in bed- states feeling tired PE grossly nl. Assessment: 08/01/17 11:12 42 yo here for alcohol detox, h/o fever yesterday, afebrlie today. Continue to monitor. Contine alcohol detox Plan: Alcohol detox protocol consult for depression
[2017-08-01] MEDS: THIAMINE HCL 100 MG TABLET (FP) PO SCH (22:44)
[2017-08-01] MEDS: IBUPROFEN 400 MG TABLET (FP) PO PRN (23:03)
[2017-08-02] MEDS ORDERED: chlordiazePOXIDE HCL 10 MG CAPSULE PO SCH (05:00)
[2017-08-02] MEDS: AMOXICILLIN 500 MG CAPSULE (FP) PO SCH ×3 (05:10→23:16)
[2017-08-02] MEDS: chlordiazePOXIDE 5 MG CAPSULE PO SCH ×4 (05:10→23:20)
--- NOTE | 2017-08-02 09:56 | PN ---
S Progress Note (SOAP) Subjective: Generalized malaise, epigastric discomfort, muscle pain Objective: 08/02/17 09:55 Vital Signs - 8 hr 08/02/17 08/02/17 03:30 06:17 Temperature 96.1 F L Pulse Rate 58 L Respiratory 18 16 Rate Blood Pressure 101/60 Laboratory Last Values WBC 3.9 K/mm3 (4.0-10.0) L 07/31/17 07:00 RBC 4.26 M/mm3 (4.00-5.60) 07/31/17 07:00 Hgb 12.0 GM/dL (11.7-16.9) 07/31/17 07:00 Hct 36.8 % (35.4-49) 07/31/17 07:00 MCV 86.3 fl (80-96) 07/31/17 07:00 MCH 28.0 pg (25.7-33.7) 07/31/17 07:00 MCHC 32.5 g/dl (32.0-35.9) 07/31/17 07:00 RDW 13.6 % (11.9-15.9) 07/31/17 07:00 Plt Count 157 K/MM3 (134-434) 07/31/17 07:00 MPV 9.9 fl (7.5-11.1) 07/31/17 07:00 Sodium 142 mmol/L (136-145) 07/31/17 07:00 Potassium 3.8 mmol/L (3.5-5.1) 07/31/17 07:00 Chloride 104 mmol/L (98-107) 07/31/17 07:00 Carbon Dioxide 28 mmol/L (21-32) 07/31/17 07:00 Anion Gap 10 (8-16) 07/31/17 07:00 BUN 15 mg/dL (7-18) 07/31/17 07:00 Creatinine 1.2 mg/dL (0.7-1.3) 07/31/17 07:00 Creat Clearance w eGFR > 60 (>60) 07/31/17 07:00 Random Glucose 84 mg/dL (74-106) 07/31/17 07:00 Calcium 8.5 mg/dL (8.5-10.1) 07/31/17 07:00 Total Bilirubin 0.5 mg/dL (0.2-1.0) 07/31/17 07:00 AST 17 U/L (15-37) 07/31/17 07:00 ALT 23 U/L (12-78) 07/31/17 07:00 Alkaline Phosphatase 54 U/L (45-117) 07/31/17 07:00 Total Protein 7.2 g/dl (6.4-8.2) 07/31/17 07:00 Albumin 3.8 g/dl (3.4-5.0) 07/31/17 07:00 Urine Color Yellow 07/31/17 Unknown Urine Appearance Turbid 07/31/17 Unknown Urine pH 5.0 (5.0-8.0) 07/31/17 Unknown Ur Specific [place] 1.034 (1.001-1.035) 07/31/17 Unknown Urine Protein 1+ (NEGATIVE) H 07/31/17 Unknown Urine Glucose (UA) Negative (NEGATIVE) 07/31/17 Unknown Urine Ketones Negative (NEGATIVE) 07/31/17 Unknown Urine Blood Negative (NEGATIVE) 07/31/17 Unknown Urine Nitrite Negative (NEGATIVE) 07/31/17 Unknown Urine Bilirubin Negative (<2.0 mg/dL) 07/31/17 Unknown Urine Urobilinogen 2.0 mg/dL (0.2-1.0) 07/31/17 Unknown Ur Leukocyte Esterase Negative (NEGATIVE) 07/31/17 Unknown Urine WBC (Auto) None /hpf (3-5) 07/31/17 Unknown Urine RBC (Auto) None /hpf (0-3) 07/31/17 Unknown Urine Bacteria Many /hpf (NONE SEEN) 07/31/17 Unknown Valproic Acid < 3.0 ug/ml (50-100) L 08/01/17 08:50 RPR Titer Nonreactive (NONREACTIVE) 07/31/17 07:00 Labs noted Assessment: 08/02/17 09:55 Withdrawal sx Plan: Continue detox Continue amoxicillin
[2017-08-02] MEDS: PRENATAL VITAMINS W/ FOLIC ACID TABLET (FP) PO SCH (10:09)
[2017-08-02] MEDS: NICOTINE 14 MG/24 HOURS TOPICAL PATCH TD SCH (10:09)
[2017-08-02] MEDS: risperiDONE 2 MG TABLET PO SCH (10:09)
[2017-08-02] MEDS: DIVALPROEX SODIUM 500 MG TABLET E.C. PO SCH (10:09)
--- NOTE | 2017-08-02 15:17 | PN ---
S Progress Note Note: Order for throat culture discontinued as per patient's wishes. He is currently receiving amoxicillin and his symptoms are resolving.
[2017-08-02] MEDS: THIAMINE HCL 100 MG TABLET (FP) PO SCH (23:16)
[2017-08-03] MEDS: chlordiazePOXIDE HCL 10 MG CAPSULE PO SCH ×3 (05:32→19:44)
[2017-08-03] MEDS: AMOXICILLIN 500 MG CAPSULE (FP) PO SCH ×2 (05:32→13:54)
[2017-08-03] MEDS: DIVALPROEX SODIUM 500 MG TABLET E.C. PO SCH (10:18)
[2017-08-03] MEDS: risperiDONE 2 MG TABLET PO SCH (10:18)
[2017-08-03] MEDS: PRENATAL VITAMINS W/ FOLIC ACID TABLET (FP) PO SCH (10:18)
[2017-08-03] MEDS: NICOTINE 14 MG/24 HOURS TOPICAL PATCH TD SCH (10:19)
--- NOTE | 2017-08-03 10:39 | DS ---
[facility] Detox Discharge Summary Admission Date: 07/30/17 Discharge Date: 08/03/17 - History Present History: Alcohol Dependence Additional Comments: 42 years old male admitted 07/30/17 for alcohol withdrawal sx completed alcohol detox regime tolerated well denies alcohol withdrawal sx alert oriented x 3 no acute distress aftercare pending with [facility] rehab interview 08/04/17 - Physical Exam Results Vital Signs: Vital Signs Temperature 97.0 F L 08/03/17 10:12 Pulse Rate 62 08/03/17 10:12 Respiratory Rate 18 08/03/17 10:12 Blood Pressure 127/74 08/03/17 10:12 O2 Sat by Pulse Oximetry (%) Pertinent Admission Physical Exam Findings: alcohol withdrawal sx Vital Signs Temperature 98.1 F 08/03/17 13:09 Pulse Rate 68 08/03/17 13:09 Respiratory Rate 18 08/03/17 13:09 Blood Pressure 102/54 08/03/17 13:09 O2 Sat by Pulse Oximetry (%) Laboratory Last Values WBC 3.9 K/mm3 (4.0-10.0) L 07/31/17 07:00 RBC 4.26 M/mm3 (4.00-5.60) 07/31/17 07:00 Hgb 12.0 GM/dL (11.7-16.9) 07/31/17 07:00 Hct 36.8 % (35.4-49) 07/31/17 07:00 MCV 86.3 fl (80-96) 07/31/17 07:00 MCH 28.0 pg (25.7-33.7) 07/31/17 07:00 MCHC 32.5 g/dl (32.0-35.9) 07/31/17 07:00 RDW 13.6 % (11.9-15.9) 07/31/17 07:00 Plt Count 157 K/MM3 (134-434) 07/31/17 07:00 MPV 9.9 fl (7.5-11.1) 07/31/17 07:00 Sodium 142 mmol/L (136-145) 07/31/17 07:00 Potassium 3.8 mmol/L (3.5-5.1) 07/31/17 07:00 Chloride 104 mmol/L (98-107) 07/31/17 07:00 Carbon Dioxide 28 mmol/L (21-32) 07/31/17 07:00 Anion Gap 10 (8-16) 07/31/17 07:00 BUN 15 mg/dL (7-18) 07/31/17 07:00 Creatinine 1.2 mg/dL (0.7-1.3) 07/31/17 07:00 Creat Clearance w eGFR > 60 (>60) 07/31/17 07:00 Random Glucose 84 mg/dL (74-106) 07/31/17 07:00 Calcium 8.5 mg/dL (8.5-10.1) 07/31/17 07:00 Total Bilirubin 0.5 mg/dL (0.2-1.0) 07/31/17 07:00 AST 17 U/L (15-37) 07/31/17 07:00 ALT 23 U/L (12-78) 07/31/17 07:00 Alkaline Phosphatase 54 U/L (45-117) 07/31/17 07:00 Total Protein 7.2 g/dl (6.4-8.2) 07/31/17 07:00 Albumin 3.8 g/dl (3.4-5.0) 07/31/17 07:00 Urine Color Yellow 07/31/17 Unknown Urine Appearance Turbid 07/31/17 Unknown Urine pH 5.0 (5.0-8.0) 07/31/17 Unknown Ur Specific [place] 1.034 (1.001-1.035) 07/31/17 Unknown Urine Protein 1+ (NEGATIVE) H 07/31/17 Unknown Urine Glucose (UA) Negative (NEGATIVE) 07/31/17 Unknown Urine Ketones Negative (NEGATIVE) 07/31/17 Unknown Urine Blood Negative (NEGATIVE) 07/31/17 Unknown Urine Nitrite Negative (NEGATIVE) 07/31/17 Unknown Urine Bilirubin Negative (<2.0 mg/dL) 07/31/17 Unknown Urine Urobilinogen 2.0 mg/dL (0.2-1.0) 07/31/17 Unknown Ur Leukocyte Esterase Negative (NEGATIVE) 07/31/17 Unknown Urine WBC (Auto) None /hpf (3-5) 07/31/17 Unknown Urine RBC (Auto) None /hpf (0-3) 07/31/17 Unknown Urine Bacteria Many /hpf (NONE SEEN) 07/31/17 Unknown Valproic Acid 72.3 ug/ml (50-100) 08/02/17 08:00 RPR Titer Nonreactive (NONREACTIVE) 07/31/17 07:00 lab noted - Treatment Hospital Course: Detox Protocol Followed, Detoxed Safely, Responded well, Discharged Condition Good, Rehab Referral Accepted Patient has Accepted a Rehab Referral to: [facility] rehab - Medication Discharge Medications: Ambulatory Orders Divalproex [Depakote -] 1,500 mg PO DAILY 07/30/17 Divalproex [Depakote -] 1,500 mg PO DAILY #30 tablet.ec 07/31/17 Risperidone [Risperdal -] 2 mg PO DAILY #30 tablet 07/31/17 - Diagnosis (1) Alcohol dependence with uncomplicated withdrawal Current Visit: Yes Status: Acute (2) Nicotine dependence Current Visit: Yes Status: Acute Qualifiers: Nicotine product type: cigarettes Substance use status: in withdrawal Qualified Code(s): F17.213 - Nicotine dependence, cigarettes, with withdrawal - AMA Did Patient Leave Against Medical Advice: No
--- NOTE | 2017-08-03 10:45 | PN ---
S Progress Note Note: aftercare interview with [facility] 08/04/17 discontinue discharge order waiting for aftercare [facility] arrangement
[2017-08-04] MEDS: AMOXICILLIN 500 MG CAPSULE (FP) PO SCH ×2 (07:00→08:35)
--- NOTE | 2017-08-04 08:09 | PN ---
S Progress Note (SOAP) Subjective: ALERT,NO COMPLAINT Objective: 08/04/17 08:08 Vital Signs Temperature 98.4 F 08/03/17 22:29 Pulse Rate 66 08/03/17 22:29 Respiratory Rate 18 08/04/17 03:30 Blood Pressure 118/73 08/03/17 22:29 O2 Sat by Pulse Oximetry (%) Assessment: 08/04/17 08:08 DETOX COMPLETED.NO WITHDRAWAL SYMPTOM Plan: DISCHARGE TODAY,FOLLOW UP WITH AFTER CARE PROGRAM ARRANGEMENT
--- NOTE | 2017-08-04 08:15 | DS ---
[facility] Detox Discharge Summary Admission Date: 07/30/17 Discharge Date: 08/04/17 - History Present History: Alcohol Dependence, Cocaine Dependence, Sedative Dependence Pertinent Past History: NICOTINE [id number] DEPRESSION ANXIETY - Physical Exam Results Vital Signs: Vital Signs Temperature 97.9 F 08/04/17 08:08 Pulse Rate 53 L 08/04/17 08:08 Respiratory Rate 08/04/17 08:08 Blood Pressure 103/65 08/04/17 08:08 O2 Sat by Pulse Oximetry (%) Pertinent Admission Physical Exam Findings: WITHDRAWAL SIGNS AND SYMPTOM - Treatment Hospital Course: Detox Protocol Followed, Detoxed Safely, Discharged Condition Good Patient has Accepted a Rehab Referral to: [facility] - Medication Discharge Medications: Ambulatory Orders Divalproex [Depakote -] 1,500 mg PO DAILY 07/30/17 Divalproex [Depakote -] 1,500 mg PO DAILY #30 tablet.ec 07/31/17 Risperidone [Risperdal -] 2 mg PO DAILY #30 tablet 07/31/17 - Diagnosis (1) Alcohol dependence with uncomplicated withdrawal Current Visit: Yes Status: Acute (2) Nicotine dependence Current Visit: Yes Status: Acute Qualifiers: Nicotine product type: cigarettes Substance use status: in withdrawal Qualified Code(s): F17.213 - Nicotine dependence, cigarettes, with withdrawal (3) Sedative, hypnotic or anxiolytic abuse with sedative, hypnotic or anxiolytic -induced mood disorder Current Visit: Yes Status: Acute (4) Cocaine dependence, uncomplicated Current Visit: Yes Status: Chronic (5) Nicotine dependence Current Visit: No Status: Chronic Qualifiers: Nicotine product type: cigarettes - AMA Did Patient Leave Against Medical Advice: No
[2017-08-04] MEDS: THIAMINE HCL 100 MG TABLET (FP) PO SCH (08:35)
[2017-08-04] MEDS: chlordiazePOXIDE HCL 10 MG CAPSULE PO SCH (08:35)
[2017-08-04 11:11] VITALS: BP 115/63; PULSE 66; TEMP 97.7
== END 2017-08-04 10:45 | disposition home or self-care (01) | DRG 774 ==
LOC: YASAS 18:34 → Y6N 22:51
PROVIDERS: ADMIT Family Medicine Addiction Medicine; ATTEND Family Medicine Addiction Medicine
PROC: HZ2ZZZZ Detoxification Services for Substance Abuse Treatment (ICD-10-PCS; principal; 2017-07-30)
DX: F10.230 Alcohol dependence with withdrawal, uncomplicated (principal); F14.20 Cocaine dependence, uncomplicated; F13.14 Sedative, hypnotic or anxiolytic abuse with sedative, hypnotic or anxiolytic-induced mood disorder; F17.213 Nicotine dependence, cigarettes, with withdrawal; F19.24 Other psychoactive substance dependence with psychoactive substance-induced mood disorder; F32.9 Major depressive disorder, single episode, unspecified; F41.0 Panic disorder [episodic paroxysmal anxiety]; Z91.5 Personal history of self-harm; Z59.0 Homelessness
CPT/HCPCS: 36415; 80053; 80164; 81003; 81015; 85027; 86593; 93005; 93010

== ENCOUNTER 2018-12-30 15:01 | Inpatient (IN) | payer OTHER ==
[2018-12-30 17:25] VITALS: BMI 24.6
--- NOTE | 2018-12-30 18:50 | HP ---
CIWA Score Nausea/Vomitin-Mild Nausea/No Vomiting Muscle Tremors: 1-None Visible, but [place] Anxiety: 4-Mod. Anxious/Guarded Agitation: 4-Moderately Restless Paroxysmal Sweats: 3 Orientation: 2-Disoriented Date<2 days Tacttile Disturbances: 0-None Auditory Disturbances: 0-None Visual Disturbances: 0-None Headache: 0-None Present CIWA-Ar Total Score: 15 - Admission Criteria OASAS Guidelines: Admission for Medically Managed Detox: Requires at least one of the followin. CIWA greater than 12 2. Seizures within the past 24 hours 3. Delirium tremens within the past 24 hours 4. Hallucinations within the past 24 hours 5. Acute intervention needed for co occurring medical disorder 6. Acute intervention needed for co occurring psychiatric disorder 7. Severe withdrawal that cannot be handled at a lower level of care (continued vomiting, continued diarrhea, abnormal vital signs) requiring intravenous medication and/or fluids 8. Patient presents the following: CIWA greater than 12 Admission Criteria Met: Admission criteria met Admitting History and Physical - Smoking History Smoking history: Current every day smoker Have you smoked in the past 12 months: Yes Aproximately how many cigarettes per day: 20 - Alcohol/Substance Use Hx Alcohol Use: Yes Admission ROS S - HPI Chief Complaint: c/o withdrawal sx's. seeking detox Allergies/Adverse Reactions: Allergies Allergy/AdvReac Type Severity Reaction Status Date / Time No Known Allergies Allergy Verified 12/30/18 17:12 History of Present Illness: 43 y.o. male with alcoholism here for detox. client is self referred. known to program, last here 1 year ago. he reports daily alcohol intake. + eye [employer]. last use 3 days ago. presents with c/o withdrawal sx's. his addiction started at the age of 39. denies any significant period of clean time this past year. reports + black outs, denies seizures, avh. homeless- nursing home, unemployed- public assist, denies legals Exam Limitations: No Limitations - Ebola screening Have you traveled outside of the country in the last 21 days: No Have you had contact with anyone from an Ebola affected area: No - Review of Systems Constitutional: Chills EENT: reports: Dental Problems (missing teeth) Respiratory: reports: Shortness of Breath Cardiac: reports: No Symptoms Reported GI: reports: Vomiting : reports: No Symptoms Reported Musculoskeletal: reports: No Symptoms Reported Integumentary: reports: No Symptoms Reported Neuro: reports: Numbness (r hand), Tremors, Other (= black outs) Endocrine: reports: No Symptoms Reported Hematology: reports: No Symptoms Reported Psychiatric: reports: Orientated x3, Agitated (irritable), Anxious, Depressed ( denies si) Other Systems: Reviewed and Negative Patient History - Patient Medical History Hx Anemia: No Hx Asthma: No Hx Chronic Obstructive Pulmonary Disease (COPD): No Hx Cancer: No Hx Cardiac Disorders: No Hx Congestive Heart Failure: No Hx Hypertension: No Hx Hypercholesterolemia: No Hx Pacemaker: No HX Cerebrovascular Accident: No Hx Seizures: No Hx Dementia: No Hx Diabetes: No Hx Gastrointestinal Disorders: No Hx Liver Disease: No Hx Genitourinary Disorders: No Hx Sexually Transmitted Disorders: No Hx Renal Disease (ESRD): No Hx Thyroid Disease: No Hx Human Immunodeficiency Virus (HIV): No (N egative) Hx Hepatitis C: No Hx Depression: Yes (Risperdal and depakote- non complaint) Hx Suicide Attempt: No Hx Bipolar Disorder: Yes Hx Schizophrenia: No - Patient Surgical History Past Surgical History: No Hx Neurologic Surgery: No Hx Cataract Extraction: No Hx Cardiac Surgery: No Hx Lung Surgery: No Hx Breast Surgery: No Hx Breast Biopsy: No Hx Abdominal Surgery: No Hx Appendectomy: No Hx Cholecystectomy: No Hx Genitourinary Surgery: No Hx Section: No Hx Orthopedic Surgery: No Anesthesia Reaction: No - PPD History Previous Implant?: Yes Documented Results: Negative w/proof Implanted On Prior [facility] Admission?: Yes Date: 10/18/16 Results: 0mm PPD to be Administered?: Yes - Smoking Cessation Smoking history: Current every day smoker Have you smoked in the past 12 months: Yes Aproximately how many cigarettes per day: 10 Cigars Per Day: 0 Hx Chewing Tobacco Use: No Initiated information on smoking cessation: Yes 'Breaking Loose' booklet given: 12/30/18 - Substances abused Alcohol Substance route: Oral Frequency: Daily Amount used: 2 pints of vodka Age of first use: 14 Date of last use: 12/29/18 Cocaine Substance route: Smoking Frequency: 1-2 times per week Amount used: 1 gram Age of first use: 16 Date of last use: 01/02/19 Admission Physical Exam BHS - Vital Signs Vital Signs: Vital Signs - 24 hr 12/30/18 17:12 Temperature 98.7 F Pulse Rate 83 Respiratory 16 Rate Blood Pressure 132/78 - Physical General Appearance: Yes: Moderate Distress, Tremorous, Irritable, Anxious HEENTM: Yes: EOMI, Normocephalic, Normal Voice, LETICIA, Pharynx Normal, Other ( missing teeth) Respiratory: Yes: Chest Non-Tender, Lungs Clear, Normal Breath Sounds, No Respiratory Distress, No Accessory Muscle Use Neck: Yes: No masses,lesions,Nodules, Supple, Trachea in good position Breast: Yes: Breasts Symetrical Cardiology: Yes: Regular Rhythm, Regular Rate, S1, S2 Abdominal: Yes: Normal Bowel Sounds, Non Tender, Flat, Soft Genitourinary: Yes: Within Normal Limits Back: Yes: Normal Inspection Musculoskeletal: Yes: full range of Motion, Gait Steady Extremities: Yes: Normal Capillary Refill, Normal Range of Motion, Non-Tender, Tremors Neurological: Yes: Fully Oriented, Alert, Motor Strength 5/5, Depressed Affect Integumentary: Yes: Dry, Warm Lymphatic: Yes: Adenopathy - Diagnostic (1) Homeless Current Visit: Yes Status: Suspected (2) Non compliance w medication regimen Current Visit: Yes Status: Suspected (3) Alcohol dependence with uncomplicated withdrawal Current Visit: Yes Status: Acute (4) Nicotine dependence Current Visit: Yes Status: Chronic Qualifiers: Nicotine product type: cigarettes Substance use status: in withdrawal Qualified Code(s): F17.213 - Nicotine dependence, cigarettes, with withdrawal (5) Anxiety Current Visit: Yes Status: Chronic (6) Cocaine dependence, uncomplicated Current Visit: Yes Status: Acute (7) Depression Current Visit: Yes Status: Chronic (8) Drug-induced mood disorder Current Visit: Yes Status: Suspected Cleared for Admission S - Detox or Rehab [facility] Level of Care: Medically Managed Claeared for Rehab Admission: No Breathalyzer - Breathalyzer Breathalyzer: 0 Urine Drug Screen - Test Device Lot number: [id number] Expiration date: 09/09/20 - Control Is test valid?: Yes - Results Drug screen NEGATIVE: No Urine drug screen results: MICHAEL-Cocaine, BZO-Benzodiazepines Inpatient Rehab Admission - Rehab Decision to Admit Inpatient rehab admission?: No
[2018-12-30] MEDS ORDERED: MAG HYDROX/AL HYDROX/SIMETH 30 ML UNIT-DOSE CUP PO PRN (18:55)
[2018-12-30] MEDS ORDERED: LORazepam 1 MG TABLET PO PRN (18:55)
[2018-12-30] MEDS ORDERED: DICYCLOMINE HCL 10 MG CAPSULE PO PRN (18:55)
[2018-12-30] MEDS ORDERED: NICOTINE POLACRILEX 2 MG GUM BUC PRN (18:55)
[2018-12-30] MEDS ORDERED: MENTHOL/PHENOL 1 EACH UD MM PRN (18:55)
[2018-12-30] MEDS ORDERED: MELATONIN 5 MG TABLETS PO PRN (18:55)
[2018-12-30] MEDS ORDERED: MAGNESIUM HYDROX 2400MG/30ML ORAL SUSPENSION 30 ML CUP PO PRN (18:55)
[2018-12-30] MEDS ORDERED: P-EPHED 60MG/TRIPROLIDI 2.5MG TABLET PO PRN (18:55)
[2018-12-30] MEDS ORDERED: ACETAMINOPHEN 325 MG TABLET (FP) PO PRN ×2 (18:55)
[2018-12-30] MEDS ORDERED: IBUPROFEN 400 MG TABLET (FP) PO PRN (18:55)
[2018-12-30] MEDS ORDERED: guaiFENesin 200 MG/10 ML 10 ML UNIT-DOSE CUPS PO PRN (18:55)
[2018-12-30] MEDS ORDERED: hydrOXYzine PAMOATE 25 MG CAPSULE (FP) PO PRN (18:55)
[2018-12-30] MEDS ORDERED: MAGNESIUM CITRATE 300 ML BOTTLE PO PRN (18:55)
[2018-12-30] MEDS ORDERED: BISMUTH SUBSALICYLATE 524 MG/30 ML UD PO PRN (18:55)
[2018-12-30] MEDS ORDERED: METHOCARBAMOL 500 MG TABLET PO PRN (18:55)
[2018-12-30] MEDS ORDERED: ONDANSETRON *ODT* 4 MG TABLET SL PRN (18:55)
[2018-12-30] MEDS: LORazepam 2 MG TABLET PO SCH (22:11)
[2018-12-30] MEDS: THIAMINE HCL 100 MG TABLET (FP) PO SCH (22:12)
[2018-12-31] MEDS: LORazepam 2 MG TABLET PO SCH ×4 (06:30→22:04)
[2018-12-31 09:35] LABS: HEMATOCRIT 39.5 % (35.4-49); HEMOGLOBIN 12.5 GM/dL (11.7-16.9); MCH 28.5 pg (25.7-33.7); MCHC 31.7 g/dl (32.0-35.9); MEAN CELL VOLUME 89.6 fl (80-96); MEAN PLT VOLUME 10.3 fl (7.5-11.1); PLATELET COUNT 158 K/MM3 (134-434); RDW 14.1 % (11.9-15.9)
[2018-12-31 09:53] LABS: ALBUMIN 3.4 g/dl (3.4-5.0); BILIRUBIN,TOTAL 0.5 mg/dL (0.2-1); BLOOD UREA NITROGEN 9.5 mg/dL (7-18); CALCIUM 8.6 mg/dL (8.5-10.1); CREATININE 1.2 mg/dL (0.55-1.3); POTASSIUM 3.6 mmol/L (3.5-5.1); TOT PROT 6.9 g/dl (6.4-8.2)
[2018-12-31] MEDS: NICOTINE 21 MG/24 HOURS TOPICAL PATCH TD SCH (10:20)
[2018-12-31] MEDS: PRENATAL VITAMINS W/ FOLIC ACID TABLET (FP) PO SCH (10:20)
--- NOTE | 2018-12-31 12:28 | PN ---
S CIWA - CIWA Score Nausea/Vomitin-Mild Nausea/No Vomiting Muscle Tremors: 2 Anxiety: 2 Agitation: 2 Paroxysmal Sweats: No Perspiration Orientation: 0-Oriented Tacttile Disturbances: 1-Very Mild Itch/Numbness Auditory Disturbances: 0-None Visual Disturbances: 0-None Headache: 2-Mild CIWA-Ar Total Score: 10 S Progress Note (SOAP) Subjective: alert,irritable,anxious,interrupted sleep tremor Objective: 12/31/18 12:26 Vital Signs Temperature 98.1 F 12/31/18 11:15 Pulse Rate 87 12/31/18 11:15 Respiratory Rate 18 12/31/18 11:15 Blood Pressure 124/70 12/31/18 11:15 O2 Sat by Pulse Oximetry (%) Laboratory Last Values WBC 4.0 K/mm3 (4.0-10.0) 12/31/18 08:00 RBC 4.40 M/mm3 (4.00-5.60) 12/31/18 08:00 Hgb 12.5 GM/dL (11.7-16.9) 12/31/18 08:00 Hct 39.5 % (35.4-49) 12/31/18 08:00 MCV 89.6 fl (80-96) 12/31/18 08:00 MCH 28.5 pg (25.7-33.7) 12/31/18 08:00 MCHC 31.7 g/dl (32.0-35.9) L 12/31/18 08:00 RDW 14.1 % (11.9-15.9) 12/31/18 08:00 Plt Count 158 K/MM3 (134-434) 12/31/18 08:00 MPV 10.3 fl (7.5-11.1) 12/31/18 08:00 Sodium 138 mmol/L (136-145) 12/31/18 08:00 Potassium 3.6 mmol/L (3.5-5.1) 12/31/18 08:00 Chloride 104 mmol/L (98-107) 12/31/18 08:00 Carbon Dioxide 28 mmol/L (21-32) 12/31/18 08:00 Anion Gap 6 MMOL/L (8-16) L 12/31/18 08:00 BUN 9.5 mg/dL (7-18) 12/31/18 08:00 Creatinine 1.2 mg/dL (0.55-1.3) 12/31/18 08:00 Est GFR (CKD-EPI)AfAm 84.13 12/31/18 08:00 Est GFR (CKD-EPI)NonAf 72.59 12/31/18 08:00 Random Glucose 125 mg/dL (74-106) H 12/31/18 08:00 Calcium 8.6 mg/dL (8.5-10.1) 12/31/18 08:00 Total Bilirubin 0.5 mg/dL (0.2-1) 12/31/18 08:00 AST 15 U/L (15-37) 12/31/18 08:00 ALT 19 U/L (13-61) 12/31/18 08:00 Alkaline Phosphatase 60 U/L (45-117) 12/31/18 08:00 Total Protein 6.9 g/dl (6.4-8.2) 12/31/18 08:00 Albumin 3.4 g/dl (3.4-5.0) 12/31/18 08:00 Assessment: 12/31/18 12:27 withdrawal symptom Plan: continue detox methadone and ativan regimen,fasting glucose in am ,initial glucose is 125
--- NOTE | 2018-12-31 14:41 | CONSULT ---
[facility] Psychiatric Consult - Data Date of interview: 12/31/18 Admission source: [facility] Identifying data: Patient is a 43 year old single male, without children, unemployed, homeless, and is supported by public assistance. This is one of multiple admissions for patient. Patient admitted to for alcohol and cocaine dependence. Substance Abuse History: Smoking Cessation. Smoking history: Current every day smoker. Have you smoked in the past 12 months: Yes. Aproximately how many cigarettes per day: 10. Cigars Per Day: 0. Hx Chewing Tobacco Use: No. Initiated information on smoking cessation: Yes. 'Breaking Loose' booklet given : 12/30/18. - Substances abused. Alcohol. Substance route: Oral. Frequency: Daily. Amount used: 2 pints of vodka. Age of first use: 14. Date of last use: 12/29/18. Cocaine. Substance route: Smoking. Frequency: 1-2 times per week. Amount used: 1 gram. Age of first use: 16. Date of last use: 01/02/19 Medical History: denies. Psychiatric History: Interview conducted bedside. Patient reports history of multiple psychiatric hospitalizations, most recently three months ago at [facility] ( all additional hospitalizations have occured at same hospital). Reports being prescribed abilify 5mg + Trazodone 100mg. Reports a diagnosis of schizoaffective disorder. External medcations reviewed and noted prescriptions for seroquel 100mg + Depakote 500mg BID ( 30 day script on 2016 and 15 day script for lexapro 10mg on 11/2016). Patient is not currently followed by an outpatient psychiatric provider. Mr. French denies auditory/ visual halluciations, suicidal/homicidal ideation. Denies history of suicide attempt. Physical/Sexual Abuse/Trauma History: denies. Mental Status Exam - Mental Status Exam Alert and Oriented to: Time, Place, Person Cognitive Function: Good Patient Appearance: Well Groomed Mood: Sad, Withdrawn Affect: Mood Congruent Patient Behavior: Fatigued Speech Pattern: Delayed (Patinet is fatigue. interview conducted bedside. ) Voice Loudness: Mildly Soft/Quiet Thought Process: Goal Oriented Thought Disorder: Not Present Hallucinations: Denies Suicidal Ideation: Denies Homicidal Ideation: Denies Insight/Judgement: Poor Sleep: Poorly Appetite: Fair Muscle strength/Tone: Normal Gait/Station: Other (Did not observe gait) Psychiatric Findings - Problem List ([place] 1, 2,3) (1) Alcohol dependence with uncomplicated withdrawal Status: Acute (2) Cocaine dependence, uncomplicated Status: Acute (3) Nicotine dependence Status: Chronic Qualifiers: Nicotine product type: cigarettes Substance use status: in withdrawal Qualified Code(s): F17.213 - Nicotine dependence, cigarettes, with withdrawal (4) Substance induced mood disorder Status: Acute (5) Schizoaffective disorder Status: Suspected Comment: Self report - Initial Treatment Plan Initial Treatment Plan: Psychoeducation provided. Detoxification in progress. Will order Abilify 5mg daily + Trazodone 50mg HS. Benefits and side effects discussed. Verbal consent given.
[2018-12-31] MEDS: traZODone HCL 50 MG TABLET (FP) PO SCH (21:30)
[2018-12-31] MEDS: THIAMINE HCL 100 MG TABLET (FP) PO SCH (21:30)
[2019-01-01] MEDS: LORazepam 1 MG TABLET PO SCH ×4 (05:25→22:16)
[2019-01-01] MEDS: PRENATAL VITAMINS W/ FOLIC ACID TABLET (FP) PO SCH (10:11)
[2019-01-01] MEDS: NICOTINE 21 MG/24 HOURS TOPICAL PATCH TD SCH (10:11)
[2019-01-01] MEDS: ARIPiprazole 5 MG TABLET (FP) PO SCH (10:11)
[2019-01-01 10:13] LABS: PH,URINE 5.5 (5.0-8.0); URINE APPEARANCE CLEAR; URINE BILIRUBIN NEGATIVE (NEGATIVE); URINE COLOR YELLOW; URINE GLUCOSE (UA) NEGATIVE (NEGATIVE); URINE KETONE NEGATIVE (NEGATIVE); URINE LEUK ESTERASE NEGATIVE (NEGATIVE); URINE NITRITE NEGATIVE (NEGATIVE); URINE PROTEIN NEGATIVE (NEGATIVE); URINE UROBILINOGEN 0.2 mg/dL (0.2-1.0)
--- NOTE | 2019-01-01 11:25 | PN ---
[facility] CIWA - CIWA Score Nausea/Vomitin-No Nausea/No Vomiting Muscle Tremors: 2 Anxiety: 1-Mildly Anxious Agitation: 2 Paroxysmal Sweats: 2 Orientation: 0-Oriented Tacttile Disturbances: 0-None Auditory Disturbances: 0-None Visual Disturbances: 0-None Headache: 0-None Present CIWA-Ar Total Score: 7 S Progress Note (SOAP) Subjective: feeling better chills little sweats Objective: 01/01/19 11:24 Vital Signs Temperature 97.7 F 01/01/19 09:47 Pulse Rate 79 01/01/19 09:47 Respiratory Rate 18 01/01/19 09:47 Blood Pressure 108/72 01/01/19 09:47 O2 Sat by Pulse Oximetry (%) Laboratory Tests 12/31/18 12/31/18 12/31/18 08:00 08:00 08:00 WBC 4.0 RBC 4.40 Hgb 12.5 Hct 39.5 MCV 89.6 MCH 28.5 MCHC 31.7 L RDW 14.1 Plt Count 158 MPV 10.3 Sodium 138 Potassium 3.6 Chloride 104 Carbon Dioxide 28 Anion Gap 6 L BUN 9.5 Creatinine 1.2 Est GFR (CKD-EPI)AfAm 84.13 Est GFR (CKD-EPI)NonAf 72.59 Random Glucose 125 H Fasting Glucose Calcium 8.6 Total Bilirubin 0.5 AST 15 ALT 19 Alkaline Phosphatase 60 Total Protein 6.9 Albumin 3.4 Urine Color Urine Appearance Urine pH Ur Specific [place] Urine Protein Urine Glucose (UA) Urine Ketones Urine Blood Urine Nitrite Urine Bilirubin Urine Urobilinogen Ur Leukocyte Esterase RPR Titer Nonreactive 01/01/19 01/01/19 08:00 08:00 WBC RBC Hgb Hct MCV MCH MCHC RDW Plt Count MPV Sodium Potassium Chloride Carbon Dioxide Anion Gap BUN Creatinine Est GFR (CKD-EPI)AfAm Est GFR (CKD-EPI)NonAf Random Glucose Fasting Glucose 97 Calcium Total Bilirubin AST ALT Alkaline Phosphatase Total Protein Albumin Urine Color Yellow Urine Appearance Clear Urine pH 5.5 Ur Specific [place] 1.023 Urine Protein Negative Urine Glucose (UA) Negative Urine Ketones Negative Urine Blood Negative Urine Nitrite Negative Urine Bilirubin Negative Urine Urobilinogen 0.2 Ur Leukocyte Esterase Negative RPR Titer fasting glucose 97. encourage to continue with water intake and monitor sugary foods to prevent diabetes in the future aaox3 ambulating no acute distress Assessment: 01/01/19 11:25 mild withdrawals Plan: continue detox increase fluids
--- NOTE | 2019-01-01 12:18 | EKG ---
Test Reason : Blood Pressure : / mmHG Vent. Rate : 074 BPM Atrial Rate : 074 BPM P-R Int : 196 ms QRS Dur : 100 ms QT Int : 378 ms P-R-T Axes : 073 066 056 degrees QTc Int : 419 ms NORMAL SINUS RHYTHM ST ELEVATION, CONSIDER EARLY REPOLARIZATION, PERICARDITIS, OR INJURY ABNORMAL ECG WHEN COMPARED WITH ECG OF 31-JUL-2017 09:03, NO SIGNIFICANT CHANGE WAS FOUND Confirmed by MARK JAMES MD ([id number]) on 01/01/2019 12:18:17 PM Referred By: PIO CASTELLON Confirmed By:MARK JAMES MD
[2019-01-01] MEDS: THIAMINE HCL 100 MG TABLET (FP) PO SCH (22:16)
[2019-01-01] MEDS: traZODone HCL 50 MG TABLET (FP) PO SCH (22:16)
[2019-01-02] MEDS ORDERED: LORazepam 0.5 MG TABLET PO PRN
[2019-01-02] MEDS: LORazepam 0.5 MG TABLET PO SCH ×4 (05:55→22:47)
[2019-01-02] MEDS: PRENATAL VITAMINS W/ FOLIC ACID TABLET (FP) PO SCH (10:32)
[2019-01-02] MEDS: NICOTINE 21 MG/24 HOURS TOPICAL PATCH TD SCH (10:32)
[2019-01-02] MEDS: ARIPiprazole 5 MG TABLET (FP) PO SCH (10:32)
--- NOTE | 2019-01-02 16:54 | PN ---
S CIWA - CIWA Score Nausea/Vomitin-No Nausea/No Vomiting Muscle Tremors: None Anxiety: 0-No Anxiety, at Ease Agitation: 1-Slight > Activity Paroxysmal Sweats: No Perspiration Orientation: 2-Disoriented Date<2 days Tacttile Disturbances: 0-None Auditory Disturbances: 0-None Visual Disturbances: 0-None Headache: 0-None Present CIWA-Ar Total Score: 3 BHS Progress Note (SOAP) Subjective: Patient denies current Withdrawal / Detox symptoms and reports that he feels well overall at this time. Objective: PATIENT A & O X 2 (UNCERTAIN ABOUT CURRENT DAY/ DATE). PATIENT OBSERVED AMBULATING ON DETOX UNIT UNASSISTED. IN NO ACUTE DISTRESS. 01/02/19 16:51 Vital Signs Temperature 98.2 F 01/02/19 13:55 Pulse Rate 78 01/02/19 13:55 Respiratory Rate 16 01/02/19 13:55 Blood Pressure 125/67 01/02/19 13:55 O2 Sat by Pulse Oximetry (%) Laboratory Tests 12/31/18 12/31/18 12/31/18 08:00 08:00 08:00 WBC 4.0 RBC 4.40 Hgb 12.5 Hct 39.5 MCV 89.6 MCH 28.5 MCHC 31.7 L RDW 14.1 Plt Count 158 MPV 10.3 Sodium 138 Potassium 3.6 Chloride 104 Carbon Dioxide 28 Anion Gap 6 L BUN 9.5 Creatinine 1.2 Est GFR (CKD-EPI)AfAm 84.13 Est GFR (CKD-EPI)NonAf 72.59 Random Glucose 125 H Fasting Glucose Calcium 8.6 Total Bilirubin 0.5 AST 15 ALT 19 Alkaline Phosphatase 60 Total Protein 6.9 Albumin 3.4 Urine Color Urine Appearance Urine pH Ur Specific [place] Urine Protein Urine Glucose (UA) Urine Ketones Urine Blood Urine Nitrite Urine Bilirubin Urine Urobilinogen Ur Leukocyte Esterase RPR Titer Nonreactive 01/01/19 01/01/19 08:00 08:00 WBC RBC Hgb Hct MCV MCH MCHC RDW Plt Count MPV Sodium Potassium Chloride Carbon Dioxide Anion Gap BUN Creatinine Est GFR (CKD-EPI)AfAm Est GFR (CKD-EPI)NonAf Random Glucose Fasting Glucose 97 Calcium Total Bilirubin AST ALT Alkaline Phosphatase Total Protein Albumin Urine Color Yellow Urine Appearance Clear Urine pH 5.5 Ur Specific [place] 1.023 Urine Protein Negative Urine Glucose (UA) Negative Urine Ketones Negative Urine Blood Negative Urine Nitrite Negative Urine Bilirubin Negative Urine Urobilinogen 0.2 Ur Leukocyte Esterase Negative RPR Titer LABS NOTED. Assessment: 01/02/19 16:52 WITHDRAWAL SYMPTOMS. Plan: CONTINUE DETOX. PATIENT SCHEDULED FOR D/C FROM DETOX UNIT TOMORROW.
[2019-01-02] MEDS: traZODone HCL 50 MG TABLET (FP) PO SCH (22:47)
[2019-01-02] MEDS: THIAMINE HCL 100 MG TABLET (FP) PO SCH (22:47)
[2019-01-03] MEDS ORDERED: LORazepam 0.5 MG TABLET PO ONE (05:00)
[2019-01-03 09:41] VITALS: BP 105/67; PULSE 85; TEMP 98.1
--- NOTE | 2019-01-03 17:46 | DS ---
[facility] Detox Discharge Summary Admission Date: 12/30/18 Discharge Date: 01/03/19 - History Present History: Alcohol Dependence, Cocaine Dependence Additional Comments: Patient completed detox successfully and discharged safely. Instructed to follow up with PCP within 1-2 weeks. Patient discharged in stable condition. Pertinent Past History: Nicotine dependence Alcohol dependence Cocaine use disorder Depression Bipolar disorder - Physical Exam Results Vital Signs: Vital Signs Temperature 98.1 F 01/03/19 09:40 Pulse Rate 85 01/03/19 09:40 Respiratory Rate 18 01/03/19 09:40 Blood Pressure 105/67 01/03/19 09:40 O2 Sat by Pulse Oximetry (%) Pertinent Admission Physical Exam Findings: Withdrawal sxs Laboratory Tests 12/31/18 12/31/18 12/31/18 08:00 08:00 08:00 WBC 4.0 RBC 4.40 Hgb 12.5 Hct 39.5 MCV 89.6 MCH 28.5 MCHC 31.7 L RDW 14.1 Plt Count 158 MPV 10.3 Sodium 138 Potassium 3.6 Chloride 104 Carbon Dioxide 28 Anion Gap 6 L BUN 9.5 Creatinine 1.2 Est GFR (CKD-EPI)AfAm 84.13 Est GFR (CKD-EPI)NonAf 72.59 Random Glucose 125 H Fasting Glucose Calcium 8.6 Total Bilirubin 0.5 AST 15 ALT 19 Alkaline Phosphatase 60 Total Protein 6.9 Albumin 3.4 Urine Color Urine Appearance Urine pH Ur Specific [place] Urine Protein Urine Glucose (UA) Urine Ketones Urine Blood Urine Nitrite Urine Bilirubin Urine Urobilinogen Ur Leukocyte Esterase RPR Titer Nonreactive 01/01/19 01/01/19 08:00 08:00 WBC RBC Hgb Hct MCV MCH MCHC RDW Plt Count MPV Sodium Potassium Chloride Carbon Dioxide Anion Gap BUN Creatinine Est GFR (CKD-EPI)AfAm Est GFR (CKD-EPI)NonAf Random Glucose Fasting Glucose 97 Calcium Total Bilirubin AST ALT Alkaline Phosphatase Total Protein Albumin Urine Color Yellow Urine Appearance Clear Urine pH 5.5 Ur Specific [place] 1.023 Urine Protein Negative Urine Glucose (UA) Negative Urine Ketones Negative Urine Blood Negative Urine Nitrite Negative Urine Bilirubin Negative Urine Urobilinogen 0.2 Ur Leukocyte Esterase Negative RPR Titer Labs reviewed - Treatment Hospital Course: Detox Protocol Followed, Detoxed Safely, Responded well, Discharged Condition Good - Medication Discharge Medications: Ambulatory Orders Divalproex [Depakote -] 1,500 mg PO DAILY 07/30/17 Divalproex [Depakote -] 1,500 mg PO DAILY #30 tablet.ec 07/31/17 Risperidone [Risperdal -] 2 mg PO DAILY #30 tablet 07/31/17 Aripiprazole [Abilify] 5 mg PO DAILY 12/30/18 traZODone HCL [Trazodone HCl] 100 mg PO DAILY 12/30/18 - Diagnosis (1) Bipolar disorder Status: Chronic (2) Cocaine use disorder Status: Chronic (3) Alcohol dependence with uncomplicated withdrawal Status: Acute (4) Depression Status: Chronic (5) Nicotine dependence Status: Chronic Qualifiers: Nicotine product type: cigarettes - AMA Did Patient Leave Against Medical Advice: No (Instructed to follow up with PCP within 1-2 weeks post discharge)
== END 2019-01-03 10:55 | disposition home or self-care (01) | DRG 774 ==
LOC: YASAS 15:01 → Y6N 19:44
PROVIDERS: ADMIT Allergy & Immunology; ATTEND Allergy & Immunology
PROC: HZ2ZZZZ Detoxification Services for Substance Abuse Treatment (ICD-10-PCS; principal; 2018-12-30)
DX: F10.230 Alcohol dependence with withdrawal, uncomplicated (principal); F14.20 Cocaine dependence, uncomplicated; F17.210 Nicotine dependence, cigarettes, uncomplicated; F31.9 Bipolar disorder, unspecified; F41.9 Anxiety disorder, unspecified; F19.24 Other psychoactive substance dependence with psychoactive substance-induced mood disorder; Z91.19 Patient's noncompliance with other medical treatment and regimen; Z59.0 Homelessness
CPT/HCPCS: 36415; 80053; 81003; 82947; 85027; 86593; 93005; 93010

== ENCOUNTER 2019-01-04 09:31 | Inpatient (IN) | payer OTHER ==
[2019-01-04 10:00] VITALS: BMI 23.5
--- NOTE | 2019-01-04 10:57 | HP ---
CIWA Score - Admission Criteria [facility] Guidelines: Admission for Medically Managed Detox: Requires at least one of the followin. CIWA greater than 12 2. Seizures within the past 24 hours 3. Delirium tremens within the past 24 hours 4. Hallucinations within the past 24 hours 5. Acute intervention needed for co occurring medical disorder 6. Acute intervention needed for co occurring psychiatric disorder 7. Severe withdrawal that cannot be handled at a lower level of care (continued vomiting, continued diarrhea, abnormal vital signs) requiring intravenous medication and/or fluids 8. Admitting History and Physical - Admission Chief Complaint: " I want to go to rehab. I just completed detox here and was told to come back today for a rehab bed." History of Present Illness: 44 male with alcohol dependence and cocaine use disorder. He was incarcerated after 17 years old for manslaughter. He was released from skilled nursing in 2016. He started drinking 6 months upon release. He was drinking 2 pints of vodka daily. He was also smoking and inhaling cocaine about 1 gram per day. He entered detox 5 days ago and completed detox at [facility] and then there was no immediate availability for a rehab bed. He was told to return today to be admitted. He smokes 1/2 ppd of ciggarettes since the age of [age] years old PMH: None Psurg: None Patient is homeless in senior care system but needs to get permanent house. Patient is laid off from maintenance work. Patient has poor support systems and impulse control. History Source: Patient Limitations to Obtaining History: No Limitations - Past Surgical History Past Surgical History: Yes: None - Advance Directives Advance Directives: No: Living Will, Health Care Proxy, DNR - Smoking History Smoking history: Current every day smoker Have you smoked in the past 12 months: Yes Aproximately how many cigarettes per day: 10 - Alcohol/Substance Use Hx Alcohol Use: Yes (1 pint daily of vodka) History of Substance Use: reports: Cocaine Date of Last Use: 12/29/18 - Social History Usual Living Arrangement: Yes: Alone Do you think of yourself as: Straight/Heterosexual ADL: Independent Occupation: property maintenance technician History of Recent Travel: No Admission ROS [facility] - [facility] Allergies/Adverse Reactions: Allergies Allergy/AdvReac Type Severity Reaction Status Date / Time No Known Allergies Allergy Verified 01/04/19 09:53 Exam Limitations: No Limitations - Ebola screening Have you traveled outside of the country in the last 21 days: No Have you had contact with anyone from an Ebola affected area: No Have you been sick,other than usual withdrawal symptoms: No Do you have a fever: No - Review of Systems Constitutional: No Symptoms Reported EENT: reports: No Symptoms Reported Respiratory: reports: No Symptoms reported Cardiac: reports: No Symptoms Reported GI: reports: No Symptoms Reported : reports: No Symptoms Reported Musculoskeletal: reports: No Symptoms Reported Integumentary: reports: No Symptoms Reported Neuro: reports: No Symptoms reported Endocrine: reports: No Symptoms Reported Hematology: reports: No Symptoms Reported Psychiatric: reports: No Sypmtoms Reported, Judgement Intact, Mood/Affect Appropiate, Orientated x3 Other Systems: Reviewed and Negative Patient History - Patient Medical History Hx Anemia: No Hx Asthma: No Hx Chronic Obstructive Pulmonary Disease (COPD): No Hx Cancer: No Hx Cardiac Disorders: No Hx Congestive Heart Failure: No Hx Hypertension: No Hx Hypercholesterolemia: No Hx Pacemaker: No HX Cerebrovascular Accident: No Hx Seizures: No Hx Dementia: No Hx Diabetes: No Hx Gastrointestinal Disorders: No Hx Liver Disease: No Hx Genitourinary Disorders: No Hx Sexually Transmitted Disorders: No Hx Renal Disease (ESRD): No Hx Thyroid Disease: No Hx Human Immunodeficiency Virus (HIV): No (N egative) Hx Hepatitis C: No Hx Depression: Yes (Risperdal and depakote- non complaint) Hx Suicide Attempt: No Hx Bipolar Disorder: Yes Hx Schizophrenia: No - Patient Surgical History Past Surgical History: No Hx Neurologic Surgery: No Hx Cataract Extraction: No Hx Cardiac Surgery: No Hx Lung Surgery: No Hx Breast Surgery: No Hx Breast Biopsy: No Hx Abdominal Surgery: No Hx Appendectomy: No Hx Cholecystectomy: No Hx Genitourinary Surgery: No Hx Section: No Hx Orthopedic Surgery: No Other Surgical History: Anxiety - Depakote and Risperdal Anesthesia Reaction: No - PPD History Previous Implant?: Yes Documented Results: Negative w/proof Implanted On Prior R Admission?: Yes Date: 01/01/19 Results: 0mm PPD to be Administered?: No - Smoking Cessation Smoking history: Current every day smoker Have you smoked in the past 12 months: Yes Aproximately how many cigarettes per day: 10 Cigars Per Day: 0 Hx Chewing Tobacco Use: No Initiated information on smoking cessation: Yes 'Breaking Loose' booklet given: 01/04/19 - Substances abused Alcohol Substance route: Oral Frequency: Daily Amount used: 2 pints of vodka Age of first use: 14 Date of last use: 12/29/18 Cocaine Substance route: Smoking Frequency: 1-2 times per week Amount used: 1 gram Age of first use: 16 Date of last use: 01/02/19 Admission Physical Exam S - Vital Signs Vital Signs: Vital Signs - 24 hr 01/04/19 09:56 Temperature 98.6 F Pulse Rate 71 Respiratory 18 Rate Blood Pressure 126/76 Cleared for Admission [facility] - Detox or Rehab [facility] Level of Care: Medically Supervised Detox Regimen/Protocol: Not Applicable Claeared for Rehab Admission: Yes Screened but not Admitted - Documentation of Visit Screened but not Admitted: No Breathalyzer - Breathalyzer Breathalyzer: 0 Urine Drug Screen - Test Device Lot number: [id number] Expiration date: 09/09/20 - Control Is test valid?: Yes - Results Drug screen NEGATIVE: No Urine drug screen results: MICHAEL-Cocaine, BZO-Benzodiazepines Inpatient Rehab Admission - Rehab Decision to Admit Inpatient rehab admission?: Yes - Initial Determination Are CD services needed?: Yes Free of communicable disease: Yes Not in need of hospitalization: Yes - Rehab Admission Criteria Previous failed treatment: Yes Poor recovery environment: Yes Comorbidities: Yes Lacks judgement: Yes Patient is meeting Inpatient Rehab admission criteria:: Yes
[2019-01-04] MEDS ORDERED: LOPERAMIDE HCL 2 MG CAPSULE PO PRN (11:00)
[2019-01-04] MEDS ORDERED: guaiFENesin 200 MG/10 ML 10 ML UNIT-DOSE CUPS PO PRN (11:00)
[2019-01-04] MEDS ORDERED: MAGNESIUM CITRATE 300 ML BOTTLE PO PRN (11:00)
[2019-01-04] MEDS ORDERED: MAGNESIUM HYDROX 2400MG/30ML ORAL SUSPENSION 30 ML CUP PO PRN (11:00)
[2019-01-04] MEDS ORDERED: IBUPROFEN 400 MG TABLET (FP) PO PRN (11:00)
[2019-01-04] MEDS ORDERED: MENTHOL/PHENOL 1 EACH UD MM PRN (11:00)
[2019-01-04] MEDS ORDERED: ACETAMINOPHEN 325 MG TABLET (FP) PO PRN (11:00)
[2019-01-04] MEDS ORDERED: P-EPHED 60MG/TRIPROLIDI 2.5MG TABLET PO PRN (11:00)
[2019-01-04] MEDS ORDERED: MAG HYDROX/AL HYDROX/SIMETH 30 ML UNIT-DOSE CUP PO PRN (11:00)
[2019-01-04] MEDS ORDERED: SUVOREXANT 10 MG TABLET PO PRN (11:02)
--- NOTE | 2019-01-04 16:01 | EKG ---
Test Reason : Blood Pressure : / mmHG Vent. Rate : 059 BPM Atrial Rate : 059 BPM P-R Int : 188 ms QRS Dur : 102 ms QT Int : 426 ms P-R-T Axes : 076 064 044 degrees QTc Int : 421 ms SINUS BRADYCARDIA POSSIBLE LEFT ATRIAL ENLARGEMENT LEFT VENTRICULAR HYPERTROPHY ST ELEVATION, CONSIDER EARLY REPOLARIZATION ABNORMAL ECG WHEN COMPARED WITH ECG OF 30-DEC-2018 21:53, NO SIGNIFICANT CHANGE WAS FOUND Confirmed by ERYN GUADALUPE, ASHLEY ([id number]) on 01/04/2019 4:01:13 PM Referred By: Confirmed By:ASHLEY CERNA MD
[2019-01-04 16:25] LABS: HEMATOCRIT 43.9 % (35.4-49); HEMOGLOBIN 14.2 GM/dL (11.7-16.9); MCHC 32.2 g/dl (32.0-35.9); MEAN CELL VOLUME 89.9 fl (80-96); MEAN PLT VOLUME 10.3 fl (7.5-11.1); PLATELET COUNT 220 K/MM3 (134-434); RBC 4.89 M/mm3 (4.00-5.60); RDW 13.5 % (11.9-15.9); WHITE BLOOD COUNT 3.4 K/mm3 (4.0-10.0)
[2019-01-04 16:32] LABS: ALBUMIN 4.3 g/dl (3.4-5.0); BILIRUBIN,TOTAL 0.6 mg/dL (0.2-1); CALCIUM 9.5 mg/dL (8.5-10.1); CREATININE 1.2 mg/dL (0.55-1.3); POTASSIUM 4.1 mmol/L (3.5-5.1); TOT PROT 8.4 g/dl (6.4-8.2)
[2019-01-04] MEDS: THIAMINE HCL 100 MG TABLET (FP) PO SCH (21:45)
[2019-01-04] MEDS ORDERED: MELATONIN 5 MG TABLETS PO PRN (22:00)
[2019-01-05] MEDS: DIVALPROEX SODIUM 500 MG TABLET E.C. PO SCH (11:30)
[2019-01-05] MEDS: ARIPiprazole 5 MG TABLET (FP) PO SCH (11:30)
[2019-01-05] MEDS: PRENATAL VITAMINS W/ FOLIC ACID TABLET (FP) PO SCH (11:30)
[2019-01-05] MEDS: NICOTINE 14 MG/24 HOURS TOPICAL PATCH TD SCH (11:31)
[2019-01-05 11:54] LABS: URINE APPEARANCE CLEAR; URINE BILIRUBIN NEGATIVE (NEGATIVE); URINE COLOR YELLOW; URINE GLUCOSE (UA) NEGATIVE (NEGATIVE); URINE KETONE NEGATIVE (NEGATIVE); URINE LEUK ESTERASE NEGATIVE (NEGATIVE); URINE NITRITE NEGATIVE (NEGATIVE); URINE PROTEIN NEGATIVE (NEGATIVE); URINE UROBILINOGEN 0.2 mg/dL (0.2-1.0)
--- NOTE | 2019-01-05 15:59 | PN ---
S Progress Note Note: Pt is a 44 y/o male with a hx of JAYLYN admitted to rehab yesterday from [facility] after completing detox on on 01/03/19. Pt has a hx of bipolar disorder and Schizoaffective disorder. Pt reports he does not have a PCP at the current time. denies any PMHx. Vital Signs - 24 hr 01/05/19 01/05/19 01/05/19 00:30 03:30 07:22 Temperature 97.9 F Pulse Rate 65 Respiratory 18 18 18 Rate Blood Pressure 96/58 L A/P Hx JAYLYN Increase po fluids Maintain safety
[2019-01-05] MEDS: THIAMINE HCL 100 MG TABLET (FP) PO SCH (21:50)
[2019-01-06] MEDS: ARIPiprazole 5 MG TABLET (FP) PO SCH (10:55)
[2019-01-06] MEDS: NICOTINE 14 MG/24 HOURS TOPICAL PATCH TD SCH (10:55)
[2019-01-06] MEDS: PRENATAL VITAMINS W/ FOLIC ACID TABLET (FP) PO SCH (10:55)
[2019-01-06] MEDS: DIVALPROEX SODIUM 500 MG TABLET E.C. PO SCH (11:47)
--- NOTE | 2019-01-06 13:06 | CONSULT ---
[facility] Psychiatric Consult - Data Date of interview: 01/06/19 Admission source: [facility] Identifying data: Patient is a 44 year old single male, without children, unemployed, homeless, and is supported by public assistance. This is one of multiple admissions for patient. Patient admitted to for alcohol and cocaine dependence. Substance Abuse History: - Smoking Cessation. Smoking history: Current every day smoker. Have you smoked in the past 12 months: Yes. Aproximately how many cigarettes per day: 10. Cigars Per Day: 0. Hx Chewing Tobacco Use: No. Initiated information on smoking cessation: Yes. 'Breaking Loose' booklet given : 12/30/18. - Substances abused. Alcohol. Substance route: Oral. Frequency: Daily. Amount used: 2 pints of vodka. Age of first use: 14. Date of last use: 12/29/18. Cocaine. Substance route: Smoking. Frequency: 1-2 times per week. Amount used: 1 gram. Age of first use: 16. Date of last use: 01/02/19 Medical History: denies. Psychiatric History: Patient reports history of multiple psychiatric hospitalizations, most recently three months ago at [facility] ( all additional hospitalizations have occured at same hospital). Reports being prescribed Abilify 5mg + Trazodone 100mg. Reports a diagnosis of schizoaffective disorder. Denies history of suicide attempt. External medications reviewed and noted prescriptions for seroquel 100mg + Depakote 500mg BID ( 30 day script on 12/2016 and 15 day script for lexapro 10mg on 2016). Mr. French also reports past history of accepting risperdal. Patient is not currently followed by an outpatient psychiatric provider. Mr. French was resumed on Abilify 5mg + Trazodone 50mg while in detox. Today, patient reports feeling depressed and confined on the unit. He denies auditory/visual hallucinations. Physical/Sexual Abuse/Trauma History: denies. Mental Status Exam - Mental Status Exam Alert and Oriented to: Time, Place, Person Cognitive Function: Good Patient Appearance: Well Groomed Mood: Sad Affect: Mood Congruent Patient Behavior: Cooperative Speech Pattern: Appropriate Voice Loudness: Normal Thought Process: Goal Oriented Thought Disorder: Not Present Hallucinations: Denies Suicidal Ideation: Denies Homicidal Ideation: Denies Insight/Judgement: Poor Sleep: Fair Appetite: Fair Muscle strength/Tone: Normal Gait/Station: Normal Psychiatric Findings - Problem List ([place] 1, 2,3) (1) Alcohol use disorder Current Visit: Yes Status: Acute (2) Substance induced mood disorder Current Visit: Yes Status: Acute (3) Cocaine use disorder Current Visit: Yes Status: Chronic (4) Schizoaffective disorder Current Visit: Yes Status: Chronic Comment: Self report - Initial Treatment Plan Initial Treatment Plan: Psychoeducation provided. Will d/c Abilify 5mg daily. Will order Abilify 10mg HS for mood stabilization + trazodone 50mg HS ( reordered as it was discontinued upon transfer). Patient preferred to not resume depakote as he reports difficulty with compliance and was educated of the importance of compliance when accepting depakote. Benefits and side effects discussed. Verbal consent given.
[2019-01-06] MEDS: THIAMINE HCL 100 MG TABLET (FP) PO SCH (21:43)
[2019-01-06] MEDS: traZODone HCL 50 MG TABLET (FP) PO SCH (21:43)
[2019-01-07] MEDS: ARIPiprazole 10 MG TABLET PO SCH (10:02)
[2019-01-07] MEDS: PRENATAL VITAMINS W/ FOLIC ACID TABLET (FP) PO SCH (10:02)
[2019-01-07] MEDS: NICOTINE 14 MG/24 HOURS TOPICAL PATCH TD SCH (10:02)
[2019-01-07] MEDS: traZODone HCL 50 MG TABLET (FP) PO SCH (21:48)
[2019-01-07] MEDS: THIAMINE HCL 100 MG TABLET (FP) PO SCH (21:49)
[2019-01-08 08:11] VITALS: BP 120/78; PULSE 62; TEMP 97.3
--- NOTE | 2019-01-08 09:58 | DS ---
[facility] Discharge Summary - [facility] Discharge Summary Admission Date: 01/04/19 Discharge Date: 01/08/19 - History Present History: Alcohol dependence, Cocaine dependence Pertinent Past History: 44 male with alcohol dependence and cocaine use disorder. He was incarcerated 19 years for manslaughter. He was [facility]. He started drinking 6 months upon release. He was drinking 2 pints of vodka daily. He was also smoking and inhaling cocaine about 1 gram per day. He smokes 1/2 ppd of ciggarettes since the age of [age] years old PMH: None Psurg: None Patient is homeless in custodial system but needs to get permanent house. Patient is laid off from maintenance work. Patient has poor support systems and impulse control. - Discharge Physical Exam Vital Signs: Vital Signs Temperature 97.3 F L 01/08/19 08:10 Pulse Rate 62 01/08/19 08:10 Respiratory Rate 18 01/08/19 08:10 Blood Pressure 120/78 01/08/19 08:10 O2 Sat by Pulse Oximetry (%) Pertinent Admission Physical Exam Findings: Physical Exam General: No apparent distress HHEENTM: Normocephalic, PERRLA Lungs: clear Heart: s1 s2 Abd: +BS Neuro: CN 2-12 intact MSK: Full weight bearing, full ROM, steady gait - Treatment Discharge Condition: Outpatient referral accepted (Medically stable for discharge. Patient will return to [facility] therapy) - Medication Discharge Medications: Ambulatory Orders Divalproex [Depakote -] 1,500 mg PO DAILY #30 tablet.ec 07/31/17 Risperidone [Risperdal -] 2 mg PO DAILY #30 tablet 07/31/17 Aripiprazole [Abilify] 5 mg PO DAILY 12/30/18 traZODone HCL [Trazodone HCl] 100 mg PO DAILY 12/30/18 - Medication-Assisted Treatment (MAT) Medication-Assisted Treatment (MAT): No - Discharge Instructions Diet, activity, other medical instructions: Diet: as tolerated Activity: as tolerated Other medical instructions: Please follow up with aftercare referral. - Diagnosis (1) Alcohol use disorder Current Visit: Yes Status: Chronic (2) Cocaine use disorder Current Visit: Yes Status: Chronic - Follow-up Referral Minutes to complete discharge: 20 - AMA Did Patient Leave Against Medical Advice: No
[2019-01-08] MEDS: ARIPiprazole 10 MG TABLET PO SCH (10:36)
[2019-01-08] MEDS: NICOTINE 14 MG/24 HOURS TOPICAL PATCH TD SCH (10:36)
[2019-01-08] MEDS: PRENATAL VITAMINS W/ FOLIC ACID TABLET (FP) PO SCH (10:36)
--- NOTE | 2019-01-08 11:06 | PN ---
[facility] Progress Note Note: Patient is discharged today. Scripts for 30 days supply of medications(Abilify 10 mg/day, Trazadone 50 mg/hs) are electronically transmitted to [facility] at [address], [place] [address]
== END 2019-01-08 12:20 | disposition home or self-care (01) | DRG 772 ==
LOC: YASAS 09:31 → Y5N 11:46
PROVIDERS: ADMIT Neuromusculoskeletal Medicine & OMM; ATTEND Neuromusculoskeletal Medicine & OMM
PROC: HZ42ZZZ Group Counseling for Substance Abuse Treatment, Cognitive-Behavioral (ICD-10-PCS; principal; 2019-01-03)
DX: F10.20 Alcohol dependence, uncomplicated (principal); F14.10 Cocaine abuse, uncomplicated; F17.210 Nicotine dependence, cigarettes, uncomplicated; F25.9 Schizoaffective disorder, unspecified; F19.24 Other psychoactive substance dependence with psychoactive substance-induced mood disorder; F41.8 Other specified anxiety disorders; Z59.0 Homelessness
CPT/HCPCS: 36415; 80053; 81003; 85027; 86593; 93005; 93010